=== PATIENT | female | born 1950 | race Caucasian/White ===

== ENCOUNTER → 2020-10-08 13:45 | Outpatient (BNVA) | payer MEDICARE, SELFPAY | PROVIDERS: PCP Family Medicine | DX: N39.46 Mixed incontinence (principal) | CPT/HCPCS: 99212 ==

== ENCOUNTER → 2021-03-23 13:41 | Outpatient (BNVA) | payer MEDICARE, SELFPAY | DX: N39.46 Mixed incontinence (principal) | CPT/HCPCS: 99212 ==

== ENCOUNTER → 2021-04-22 13:38 | Outpatient (BNVA) | payer MEDICARE, SELFPAY | DX: N39.46 Mixed incontinence (principal) | CPT/HCPCS: 51798; 99212 ==

== ENCOUNTER 2021-05-09 10:20 | Day surgery (SDC) | payer MEDICARE, SELFPAY ==
[2021-05-05 14:17] VITALS: BMI 30.4
--- NOTE | 2021-05-06 10:06 | HO.ANESPROP2 ---
Documented by User: Cate Jaimes NP 05/06/21 10:07 HPI - Anesthesia Eval Consult details Narrative: 70yo F for Interstim Generator Removal PMFSH Active Problems Active Problems: All Active Problems (Updated 05/05/21 @ 14:16 by Torri Pearl RN) Urge and stress incontinence (Acute) Past Medical History Medical History (Updated 05/05/21 @ 14:16 by Torri Pearl RN) Anxiety and depression Arthritis Hypothyroidism OAB (overactive bladder) PONV (postoperative nausea and vomiting) Urge and stress incontinence Surgical History Surgical History (Updated 05/05/21 @ 14:16 by Torri Pearl RN) History of partial hysterectomy History of pubovaginal sling History of surgery Hx of colonoscopy Social History Social History (Updated 05/05/21 @ 14:17 by Torri Pearl RN) Alcohol intake: current Alcohol intake frequency: holidays/special occasions only Patient Tobacco Use Status: Former Tobacco user Quit Date: 1983 Use of substances other than those prescribed or required for medical reasons: No Are you DNR?: No Advance Directives: No Advance Directives Information Provided: Yes Advance Directives on File: No Recently lost weight without trying: No Meds Allergies Allergy/AdvReac Type Severity Reaction Status Date / Time atorvastatin [From Lipitor] AdvReac Intermediate muscle ache Verified 05/05/21 14:12 Home Medications Medication Instructions Recorded Confirmed Last Taken Type lamotrigine 100 mg tablet 100 mg PO TID 02/11/21 05/05/21 Unknown History levothyroxine 75 mcg tablet 1 tab PO DAILY 02/11/21 05/05/21 05/09/21 History (Euthyrox) meclizine 25 mg tablet tab PO 02/11/21 Unknown History pravastatin 80 mg tablet 1 tab PO DAILY 02/11/21 05/05/21 Unknown History tretinoin 0.1 % topical cream 1 applic TOPICAL BEDTIME 02/11/21 02/11/21 Unknown History Exam Exam Date and Time: May 06, 2021 1006 Height,Weight and Vital Signs: Height 5 ft 4.5 in Weight 81.647 kg Assessment and Plan Assessment Anesthesia Assessment: Chart Reviewed Documented by User: Alejandro Chapman 05/09/21 16:47 [facility] Past Medical History Medical History (Updated 05/05/21 @ 14:16 by Torri Pearl, MALICK) Anxiety and depression Arthritis Hypothyroidism OAB (overactive bladder) PONV (postoperative nausea and vomiting) Urge and stress incontinence Family History Family history of problems with anesthesia: No Surgical History Surgical History (Updated 05/05/21 @ 14:16 by Torri Pearl RN) History of partial hysterectomy History of pubovaginal sling History of surgery Hx of colonoscopy History of Problems with Anesthesia: Yes (Ponv ) Social History Social History (Updated 05/05/21 @ 14:17 by Torri Pearl RN) Alcohol intake: current Alcohol intake frequency: holidays/special occasions only Patient Tobacco Use Status: Former Tobacco user Quit Date: 1983 Use of substances other than those prescribed or required for medical reasons: No Are you DNR?: No Advance Directives: No Advance Directives Information Provided: Yes Advance Directives on File: No Recently lost weight without trying: No Meds Allergies Allergy/AdvReac Type Severity Reaction Status Date / Time atorvastatin [From Lipitor] AdvReac Intermediate muscle ache Verified 05/05/21 14:12 Home Medications Medication Instructions Recorded Confirmed Last Taken Type lamotrigine 100 mg tablet 100 mg PO TID 02/11/21 05/05/21 Unknown History levothyroxine 75 mcg tablet 1 tab PO DAILY 02/11/21 05/05/21 05/09/21 History (Euthyrox) meclizine 25 mg tablet tab PO 02/11/21 Unknown History pravastatin 80 mg tablet 1 tab PO DAILY 02/11/21 05/05/21 Unknown History tretinoin 0.1 % topical cream 1 applic TOPICAL BEDTIME 02/11/21 02/11/21 Unknown History Exam Airway Mallampati Class: III TM Dist: >3cm Neck ROM: Full Partial: Upper Loose/Missing/Broken Teeth: Yes (Fillings ) Heart: rrr Lungs: bl breath sounds Assessment and Plan Assessment Anesthesia Assessment: Anesthesia Plan Discussed Final Anesthetic Review Family History of Problems with Anesthesia: No History of Problems with Anesthesia: Yes (Ponv ) NPO: Yes ASA Class: II Final Preanesthetic Review: Meds/Allgs Chart Reviewed, Consent Obtained/Reviewed and Anes Risks/Benef Reviewed Patient Risk: Intermediate Procedure Risk: Intermediate Anesthetic Plan Anesthetic Plan: GA Disposition: Standard PACU
[2021-05-09 11:54] VITALS: BP 153/70; PULSE 67; RESP 16; TEMP 36.5; O2SAT 95
[2021-05-09] MEDS: Lactated Ringers 1,000 ML 100 ML IVCONT (12:10)
[2021-05-09] MEDS: Scopolamine 1.5 MG PATCH.TD.3 TRANSDERMA (12:10)
--- NOTE | 2021-05-09 17:10 | MHC.SHP ---
Pre-Procedural Eval Section A Date of Service: 05/09/21 The patient is an INPATIENT: No Changes since office visit: Yes Cold of Flu in the past 2 weeks, Yes New Medical Problems, Yes Changes in Medication and Yes Patient answered all questions The History & Physical has been completed within 30 days and I have reviewed it.: Yes Section B Chief Complaint: mixed incontinence Allergies: Allergies Allergy/AdvReac Type Severity Reaction Status Date / Time atorvastatin [From Lipitor] AdvReac Intermediate muscle ache Verified 05/05/21 14:12 Plan Diagnosis/Plan: Unchanged ( InterStim removal generated) I have reviewed the history and physical and performed a pertinent physical examination on my patient. No changes have occurred unless specified.
[2021-05-09] MEDS: levoFLOXacin 500 MG TABLET PO (17:18)
--- NOTE | 2021-05-09 18:34 | W.PM.OPN ---
Operative Note Operative Note Date of Service: 05/09/21 Narrative: PreOperative Diagnosis: nonfunctional InterStim Post Operative Diagnosis: nonfunctioning InterStim device Procedure: removal InterStim generator and lead Surgeon: Dr Andrew Monique Anesthesia: sedation Indications for procedure: 70-year-old female. Nonfunctional InterStim lead and device. Would like to have this removed. Is aware the risks and benefits. Has been given Myrbetriq to try Procedure: After informed consent was verified the patient was brought to the operating room and placed in a supine position. Anesthesia was administered per protocol. patient was placed in a prone position. She was prepped and draped in sterile fashion. Safety pause time-out performed. Local anesthetic infiltrated around the prior incision side and at the lead placement site. 15 blade used to divide skin and subcutaneous tissue onto device. Device was freed from its attachment in its pocket. Lead was then followed using an open-ended catheter over the lead with dissection to the foramen. The lead was grasped and removed. The tines remained behind is the lead was fully removed. the pocket was irrigated out. Deep tissue closed with interrupted 3-0 Vicryl. Skin closed with running 4-0 Monocryl and dressing applied. She tolerated the procedure well was extubated in operating room transferred in stable condition to the recovery area Pathology: device Drains: no drain
[2021-05-09 18:35] VITALS: BP 139/60; PULSE 68; RESP 16; TEMP 37.1; O2SAT 94
[2021-05-09 18:40] VITALS: BP 129/56; PULSE 66; RESP 14; O2SAT 92
[2021-05-09 18:47] VITALS: BP 121/61; PULSE 65; RESP 18; O2SAT 93
[2021-05-09 20:09] VITALS: BP 118/68; PULSE 68; RESP 16; TEMP 36.6; O2SAT 94
== END 2021-05-09 19:20 | disposition home or self-care (01) ==
PROVIDERS: PCP Family Medicine; Visit Provider Urology
PROC: (CPT 64585; principal; 2021-05-09 11:00)
DX: T85.193A Other mechanical complication of implanted electronic neurostimulator, generator, initial encounter (principal); Y73.1 Therapeutic (nonsurgical) and rehabilitative gastroenterology and urology devices associated with adverse incidents; N39.46 Mixed incontinence; N32.81 Overactive bladder; E03.9 Hypothyroidism, unspecified; F32.9 Major depressive disorder, single episode, unspecified; Z79.899 Other long term (current) drug therapy; Z88.8 Allergy status to other drugs, medicaments and biological substances; Z90.711 Acquired absence of uterus with remaining cervical stump; Z87.891 Personal history of nicotine dependence; Z45.42 Encounter for adjustment and management of neurostimulator
CPT/HCPCS: 64585; 64595; C1758; J1100; J2405; J3010

== ENCOUNTER → 2021-05-16 11:31 | Outpatient (BNVA) | payer MEDICARE, SELFPAY | PROVIDERS: PCP Family Medicine | DX: N39.46 Mixed incontinence (principal) | CPT/HCPCS: 99212; Q3014 ==

== ENCOUNTER → 2021-06-10 13:25 | Outpatient (BNVA) | payer MEDICARE, SELFPAY | PROVIDERS: PCP Family Medicine; Visit Provider Urology | DX: N39.46 Mixed incontinence (principal) | CPT/HCPCS: 99212 ==

== ENCOUNTER → 2021-07-15 11:17 | Outpatient (BNVA) | payer MEDICARE, SELFPAY | PROVIDERS: PCP Family Medicine | DX: N39.46 Mixed incontinence (principal) | CPT/HCPCS: Q3014 ==

== ENCOUNTER 2022-05-29 13:51 | Outpatient (REF) | payer MEDICARE, SELFPAY ==
[2022-05-29 17:08] LABS: Urine Cytology See Pathology rpt
== END 2022-05-29 13:52 | disposition home or self-care (01) ==
LOC: HO.LAB 13:51
PROVIDERS: PCP Family Medicine; Visit Provider Urology
DX: N39.46 Mixed incontinence (principal); R31.29 Other microscopic hematuria
CPT/HCPCS: 51798; 87086; 88112; 99212

== ENCOUNTER → 2022-06-30 14:16 | Outpatient (BNVA) | payer MEDICARE, SELFPAY | PROVIDERS: PCP Family Medicine; Visit Provider Urology | DX: R31.29 Other microscopic hematuria (principal); N93.9 Abnormal uterine and vaginal bleeding, unspecified; N39.41 Urge incontinence; N32.81 Overactive bladder; Z79.899 Other long term (current) drug therapy | CPT/HCPCS: 52000; 99212 ==

== ENCOUNTER → 2022-08-16 15:02 | Outpatient (BNVA) | payer MEDICARE, SELFPAY | PROVIDERS: PCP Family Medicine; Visit Provider Urology | DX: N39.41 Urge incontinence (principal); N32.89 Other specified disorders of bladder; N32.81 Overactive bladder; N93.9 Abnormal uterine and vaginal bleeding, unspecified; R31.29 Other microscopic hematuria | CPT/HCPCS: 99212 ==

== ENCOUNTER → 2022-09-27 14:22 | Outpatient (BNVA) | payer MEDICARE, SELFPAY | PROVIDERS: Visit Provider Urology | DX: N32.81 Overactive bladder (principal); N39.41 Urge incontinence | CPT/HCPCS: 51700; 51701; 99212 ==

== ENCOUNTER 2022-10-10 06:23 | Day surgery (SDC) | payer MEDICARE, SELFPAY ==
[2022-10-10 06:51] VITALS: BP 155/64; PULSE 66; RESP 16; TEMP 36.7; O2SAT 97; BMI 28.7
[2022-10-10] MEDS: Scopolamine 1.5 MG PATCH.TD.3 TRANSDERMA (07:01)
[2022-10-10] MEDS: Lactated Ringers 1,000 ML 100 ML IVCONT (07:06)
--- NOTE | 2022-10-10 07:46 | HO.ANESPROP2 ---
HPI - Anesthesia Eval Consult details Narrative: cysto PMFSH Active Problems Active Problems: All Active Problems (Updated 10/10/22 @ 06:44 by Sabra Lockwood) Microscopic hematuria (Acute) Urgency of micturition (Acute) Vaginal bleeding (Acute) Urge incontinence (Acute) Bladder wall thickening (Acute) Detrusor instability (Acute) OAB (overactive bladder) (Acute) Urge and stress incontinence (Acute) Past Medical History Medical History (Updated 10/10/22 @ 06:44 by Sabra Lockwood) Anxiety and depression Arthritis Fibromyalgia Hypothyroidism OAB (overactive bladder) PONV (postoperative nausea and vomiting) Urge and stress incontinence Family History Family history of problems with anesthesia: No Surgical History Surgical History (Updated 10/10/22 @ 06:41 by Sabra Lockwood) History of foot surgery History of partial hysterectomy History of pubovaginal sling History of surgery Hx of breast implants, bilateral Hx of colonoscopy History of Problems with Anesthesia: Yes (Ponv ) Social History Social History Alcohol intake: current Alcohol intake frequency: holidays/special occasions only Patient Tobacco Use Status: Former Tobacco user Quit Date: 1989 Tobacco use type: Cigarette Years Smoked: 15 Smoked in Last 30 Days: No Use of substances other than those prescribed or required for medical reasons: No Are you DNR?: No Advance Directives: No Advance Directives Information Provided: Yes Meds Allergies Allergy/AdvReac Type Severity Reaction Status Date / Time atorvastatin [From Lipitor] AdvReac Intermediate muscle ache Verified 10/10/22 06:41 Active Medications: Current Medications Botulinum Toxin Type A (Onabotulinumtoxina 100 Unit Vial) 100 unit INTRADETRU ONCE ONE Stop: 10/10/22 08:01 Lactated Ringer's (Lr) 1,000 mls @ 100 mls/hr IVCONT .Q10H GERRY Last Admin: 10/10/22 07:06 Dose: 100 mls/hr Home Medications Medication Instructions Recorded Confirmed Last Taken Type meclizine 25 mg tablet 1 tab PO DAILY 02/11/21 10/10/22 Unknown History pravastatin 80 mg tablet 1 tab PO DAILY 02/11/21 10/10/22 Unknown History levothyroxine 75 mcg tablet 75 mcg PO QAM 10/10/22 10/10/22 Unknown History Exam Exam Date and Time: October 10, 2022 0746 Height,Weight and Vital Signs: Height 5 ft 4.5 in Weight 77.111 kg Last Vital Signs Temp 98.1 F 10/10/22 06:51 Pulse 66 10/10/22 06:51 Resp 16 10/10/22 06:51 BP 155/64 H 10/10/22 06:51 Pulse Ox 97 10/10/22 06:51 O2 Del Method Room Air 10/10/22 06:51 Airway Mallampati Class: II TM Dist: >3cm Neck ROM: Limited Heart: rrr Lungs: cta Assessment and Plan Assessment Anesthesia Assessment: Anesthesia Plan Discussed and Chart Reviewed Final Anesthetic Review Family History of Problems with Anesthesia: No History of Problems with Anesthesia: Yes (Ponv ) NPO: Yes ASA Class: II Final Preanesthetic Review: No Changes in Pt Med Stat, Meds/Allgs Chart Reviewed, Consent Obtained/Reviewed and Anes Risks/Benef Reviewed Patient Risk: Intermediate Procedure Risk: Intermediate Anesthetic Plan Anesthetic Plan: GA and Agree w/ Assess. and Plan Disposition: Standard PACU
--- NOTE | 2022-10-10 08:14 | MHC.SHP ---
Pre-Procedural Eval Section A Date of Service: 10/10/22 The patient is an INPATIENT: No The History & Physical has been completed within 30 days and I have reviewed it.: Yes Section B Chief Complaint: Overactive bladder Allergies: Allergies Allergy/AdvReac Type Severity Reaction Status Date / Time atorvastatin [From Lipitor] AdvReac Intermediate muscle ache Verified 10/10/22 06:41 Plan Diagnosis/Plan: Unchanged I have reviewed the history and physical and performed a pertinent physical examination on my patient. No changes have occurred unless specified. Cysto Botox bladder injection Time Spent With Patient Time: Total time managing care of this patient today ____ minutes.
[2022-10-10 09:10] VITALS: BP 141/69; PULSE 90; RESP 16; TEMP 36.1; O2SAT 93
[2022-10-10 09:15] VITALS: BP 133/65; PULSE 65; RESP 16; O2SAT 95
[2022-10-10 09:20] VITALS: BP 138/72; PULSE 58; RESP 16; O2SAT 96
--- NOTE | 2022-10-10 09:20 | W.PM.OPN ---
Operative Note Operative Note Date of Service: 10/10/22 Narrative: PREOP DIAGNOSIS: OAB POSTOP DIAGNOSIS: OAB PROCEDURE: CYSTOSCOPY, BLADDER BOTOX INJECTION 100 UNITS SURGEON: Yaneli Ball MD ANESTHESIA: General Indications: Cindy is a 72 year old female with urge urinary incontinence secondary to spastic bladder failed PO anticholingeric medications. Details of procedure: The patient was brought into the operating room placed on the OR table in supine position. Levaquin 500 mg IV. General anesthesia was administered. The patient was repositioned into lithotomy position, prepped and draped in the usual sterile fashion. Time-out was done per protocol. A 22 fr cystoscope was placed transurethrally into the bladder. Urine was sent for culture. The right and left ureteral orifices were visualized. There were no suspicious bladder lesions seen. The Botox 100 units was mixed with 10 cc of normal saline and injected transurethrally 1/2 cc to 1 cc per injection into the posterior bladder wall. The cystoscope was removed. 2% lidocaine urojet was passed transurethrally into the bladder. The patient was brought out of anesthesia and taken to recovery in stable condition. Complications: None Drains: none
[2022-10-10 09:25] VITALS: BP 136/62; PULSE 57; RESP 16; O2SAT 97
[2022-10-10] MEDS: Phenazopyridine HCL 200 MG TABLET PO (09:28)
[2022-10-10 09:40] VITALS: BP 154/72; PULSE 58; RESP 16; TEMP 36.1; O2SAT 96
== END 2022-10-10 10:23 | disposition home or self-care (01) ==
PROVIDERS: PCP Family Medicine; Visit Provider Urology
PROC: 3E0K8GC Introduction of Other Therapeutic Substance into Genitourinary Tract, Via Natural or Artificial Opening Endoscopic (ICD-10-PCS; CPT 52287; principal; 2022-10-10 08:20)
DX: N32.81 Overactive bladder (principal); N39.41 Urge incontinence
CPT/HCPCS: 52287; 87086; J0131; J0585; J1100; J1885; J1956; J2405

== ENCOUNTER → 2022-10-10 06:23 | Outpatient (BNV) | payer MEDICARE, SELFPAY | PROVIDERS: PCP Family Medicine; Visit Provider Urology | DX: N32.81 Overactive bladder (principal) | CPT/HCPCS: 52287 ==

== ENCOUNTER → 2022-10-31 14:54 | Outpatient (BNVA) | payer MEDICARE, SELFPAY | PROVIDERS: PCP Family Medicine; Visit Provider Urology | DX: N32.81 Overactive bladder (principal) | CPT/HCPCS: 51798 ==

== ENCOUNTER 2022-11-20 15:47 | Outpatient (AMB) | payer MEDICARE, SELFPAY ==
--- NOTE | 2022-11-20 12:18 | A.OFFVIS_ITS ---
Intake Intake Visit Reasons: 6wk follow up Intake Note: Patient presents today for a follow-up on Post Op Cysto Botox bladder injection: Meds- Levothyroxine Allergies to Antibiotic- No Known Allergies Blood Thinner- None Stars Analytical Lead Required: No Accompanied by: Self / Same As Patient Allergies atorvastatin [From Lipitor] Adverse Reaction (Intermediate, Verified 10/10/22 06:41) muscle ache HPI HPI Comments History of Present Illness Details Cindy is a 72-year-old female who presents today to the office for a 6-week follow up. 11/20/2022? She was last seen in the office by me on 09/27/2022 for overactive bladder and mixed urinary incontinence. Bladder Botox treatment 100 units was discussed during that time. She is s/p Botox procedure on 10/10/22. Results reviewed?urine culture?10/10/2022--normal. Patient has received bladder Botox injection 100 units on 10/10/2022. Today, she states that she noticed a big improvement on her bladder control. She states that she is not leaking the urine like before. She reports stronger urinary stream and notes that she is emptying the bladder. Evaluation: Bladder scan PVR - 0 mL. Review of charts: Last visit: 09/27/2022? The patient is being followed for OAB symptoms and mixed urinary incontinence. She was last seen in the office on 08/16/22, at that time she stated she had no i mprovement using Gemtesa 75 mg. She had been prescribed multiple antimuscarinic therapy including Myrbetriq and oxybutynin. Medical records also note Medtronic InterStim was placed 2001 and later removed, the patient states the pacemaker initially seemed to work, but the battery lifetime and she was concerned that if she needed an MRI she would not be able to get one, (I have discussed that interstim is now MRI compatible).? History of sling approximately [address] Carrera. The patient is yet to follow-up with RN CLINICAL DOCUMENTATION. States intermittent mild vaginal bleeding. Evaluation today-- Eyeball Cystometrogram performed-- filled the bladder with sterile water- at 30 cc she had first sensation, at 70 cc she complained of urgency and at 195 cc she felt that she was at max capacity and detrusor contractions were noted. I removed the catheter and she started leaking. 16 Fr Liz catheter was used for the pr ocedure. Plan: Bladder Botox treatment 100 units discussed.?? 11/20/2022: Plan: I have discussed Botox injection 100 units is usually done one to twice a year, depending on LUTS, but may need to be repeated earlier at 3 months pending worsening LUTS She will have a follow up in 5 months and instructed to call sooner if needed [facility] Medical History Anxiety and depression Arthritis Fibromyalgia Hypothyroidism OAB (overactive bladder) PONV (postoperative nausea and vomiting) Urge and stress incontinence Surgical History History of foot surgery History of partial hysterectomy History of pubovaginal sling History of surgery Hx of breast implants, bilateral Hx of colonoscopy Social History Alcohol intake: current Alcohol intake frequency: holidays/special occasions only Patient Tobacco Use Status: Former Tobacco user Quit Date: 1989 Tobacco use type: Cigarette Years Smoked: 15 Review of Systems Const All systems reviewed & are unremarkable except as noted in HPI and below Reports no additional complaints Eyes Reports no additional complaints ENT Reports no additional complaints Card Denies dyspnea Resp Denies cough and Denies dyspnea GI Reports no additional complaints Reports no additional complaints Musc Reports no additional complaints Skin/Breast Denies rash and Denies unusual bruising Neuro Reports no additional complaints Psych Reports no additional complaints Endo Reports no additional complaints Tyson/Lymph Reports no additional complaints Aller/Immun Reports no additional complaints Results AMB Urinalysis, Automated UA Leukoctes 125 Antionette/uL Last Edit by Brigitte Seo A on 11/20/22 16:03 2+ Brigitte Seo 11/20/22 16:03 UA Nitrite Negative Last Edit by Brigitte Seo A on 11/20/22 16:03 UA Urobilinogen 0.2 mg/dL Last Edit by Brigitte Seo, A on 11/20/22 16:0 3 UA Protein 15 mg/dL Last Edit by Brigitte Seo, A on 11/20/22 16:03 UA pH 6.0 Last Edit by Brigitte Seo, A on 11/20/22 16:03 UA Blood 80 Zackary/uL Last Edit by Brigitte Seo A on 11/20/22 16:03 2+ Brigitte Seo 11/20/22 16:03 UA Specific Cowan 1.030 Last Edit by Brigitte Seo [facility] on 11/20/22 16: 03 UA Ketone Negative Last Edit by Brigitte Seo [facility] on 11/20/22 16:03 UA Bilirubin 0 mg/dL Last Edit by Brigitte Seo A on 11/20/22 16:03 UA Glucose 0 mg/dL Last Edit by Brigitte Seo [facility] on 11/20/22 16:03 Results Reviewed Results Reviewed: Laboratory Last Values Urine pH (Auto) 6.0 11/20/22 15:55 Specific Cowan (Auto) 1.030 11/20/22 15:55 Urine Protein (Auto) 15 mg/dL 11/20/22 15:55 Glucose (UA)(Auto) 0 mg/dL 11/20/22 15:55 Urine Ketones (Auto) Negative 11/20/22 15:55 Urine Blood (Auto) 80 Zackary/uL 11/20/22 15:55 Urine Nitrite (Auto) Negative 11/20/22 15:55 Urine Bilirubin (Auto) 0 mg/dL 11/20/22 15:55 Urine Urobilinogen (Auto) 0.2 mg/dL 11/20/22 15:55 Leukocyte Esterase (Auto) 125 Antionette/uL 11/20/22 15:55 Assessment & Plan Assessment & Plan (1) OAB (overactive bladder): Code(s): N32.81 - Overactive bladder (2) Detrusor instability: Code(s): N32.81 - Overactive bladder (3) Urge incontinence: Code(s): N39.41 - Urge incontinence Plan I have discussed Botox injection 100 units is usually done one to twice a year, depending on LUTS, but may need to be repeated earlier at 3 months pending worsening LUTS She will have a follow up in 5 months and instructed to call sooner if needed Orders: Orders AMB Urinalysis Automated 11/20/22 Z13.9 - Encounter for screening, unspecified Patient Instructions: The patient had an opportunity to ask questions regarding treatment plan. All questions were answered. Imaging, Laboratory studies and physical exam results were discussed and reviewed in detail. No major barriers to understanding were identified. The patient expressed understanding and agreement with the above treatment plan.? ? ? The patient is aware they should contact our office by phone for worsening of their current condition or the appearance of new symptoms. Compliance is encouraged with any medications and followup testing that is ordered.? ? ? It is a privilege to be allowed the opportunity to participate in the urologic care of your patient. If you have any questions or concerns regarding treatment for the above conditions please do not hesitate to contact me. The office telephone contact is [phone].? ? ? This note is constructed in part using voice recognition software. While every effort has been made to ensure accuracy motorcycle tester errors may have been included.? ? ? Yours sincerely,? ? ? Yaneli Ball MD? ? Coding Level of Care Code Est Pt Level 3 (96456) Diagnoses OAB (overactive bladder) N32.81 Detrusor instability N32.81 Urge incontinence N39.41
== END 2022-11-20 16:09 | disposition home or self-care (01) ==
PROVIDERS: PCP Family Medicine; Visit Provider Urology
DX: N32.81 Overactive bladder (principal); N39.41 Urge incontinence
CPT/HCPCS: 99213

== ENCOUNTER → 2022-11-20 15:47 | Outpatient (BNVA) | payer MEDICARE, SELFPAY | PROVIDERS: PCP Family Medicine; Visit Provider Urology | DX: N32.81 Overactive bladder (principal); N39.46 Mixed incontinence | CPT/HCPCS: 81003; 99212 ==

== ENCOUNTER 2024-10-02 14:08 | Outpatient (REF) | payer MEDICARE, SELFPAY | END 2024-10-02 14:09 | disposition home or self-care (01) | LOC: HO.LAB 14:08 | PROVIDERS: PCP Family Medicine; Visit Provider Urology | DX: N32.81 Overactive bladder (principal); N39.41 Urge incontinence | CPT/HCPCS: 87086; 99212 ==

== ENCOUNTER 2024-10-02 14:08 | Outpatient (AMB) | payer MEDICARE, SELFPAY ==
--- OUTSIDE RECORDS SUMMARY | 2017-11-26 03:00 | XMS_ITS | Continuity of Care Document ---
Author Organization [facility] Address [address] [facility] [address] [place] [phone] Phone Care Team Providers Care Business Reporting Developer Name Role Phone Garett Landers Unavailable Unavailable Procedures Procedure Date Sngl/mx Inj Scleros-veins; Diego 18 Sngl/mx Inj Scleros-veins; Diego 18 Advance Directives Directive Yes / No Effective Date File Name No Information Encounters Encounter Description Practice Location Reason(s) For Visit Diagnoses Date Provider Providers Copied on Encounter [facility], [address] [place] [address], [place], [place], [id number], tel:[phone] VR - [facility] Spider Veins - (Telangiect ac) Anshul Bajwa. [address], [place], [facility] [place], . tel:[phone] Referring Provider: Garett Meza, [address], [place], [place], [facility] [place]. tel:[phone] [facility], [address] [place] [address], [place], [place], [id number], tel:[phone] VR - [facility] Spider Veins - (Telangiect ac) Anshul Bajwa. [address], [place], [facility] [place], . tel:[phone] Referring Provider: Garett Landers F, [address], [place], [address]. tel:[phone] Family History Family Member Type Diagnosis Age [...]
--- NOTE | 2024-10-02 14:12 | MHC.OFFVIS ---
Intake Visit Reasons: follow up/OAB(seen last 2022) Intake Note: Patient presents today for a follow-up/OAB Urology Meds- Levothyroxine Allergies to Antibiotic- No Known Allergies Blood Thinner- None PVR: 0ml Automobile Mechanic Helper Required: No Accompanied by: Self / Same As Patient Allergies atorvastatin (From Lipitor) Adverse Reaction (Intermediate, Verified 10/02/24 14:21) muscle ache Medication List - Last Reconciled 10/02/24 by Yaneli Ball MD levofloxacin 250 mg PO Q24H 5 days levothyroxine 75 mcg PO QAM meclizine 1 tab PO DAILY pravastatin 1 tab PO DAILY HPI Comments Details: 10/02/24-- History of Present Illness - The patient is a 73-year-old female presenting with overactive bladder. - The patient has a history of overactive bladder symptoms which were previously managed with oral medications, but these were not effective. - In September 2022, the patient received a bladder Botox injection of 100 units as an outpatient procedure, which significantly improved her symptoms. - The effects of the Botox injection has had a sustained effect of symptom relief for several months - Recently, the patient has experienced a recurrence of symptoms, including increased urgency over the last two months. - A urine culture will be conducted to rule out any infection before proceeding with another Botox injection. Plan -- Conduct a urine culture to rule out infection before proceeding with the Botox injection. - Plan for a repeat Botox injection of 100 units for the management of overactive bladder symptoms. 11/20/2022?Cindy is a 72-year-old female who presents today to the office for a 6-week follow up. She was last seen in the office by me on 09/27/2022 for overactive bladder and mixed urinary incontinence. Bladder Botox treatment 100 units was discussed during that time. She is s/p Botox procedure on 10/10/22. Results reviewed?urine culture?10/10/2022--normal. Patient has received bladder Botox injection 100 units on 10/10/2022. Today, she states that she noticed a big improvement on her bladder control. She states that she is not leaking the urine like before. She reports stronger urinary stream and notes that she is emptying the bladder. Evaluation: Bladder scan PVR - 0 mL. Last visit: 09/27/2022?The patient is being followed for OAB symptoms and mixed urinary incontinence. She was last seen in the office on 08/16/22, at that time she stated she had no improvement using Gemtesa 75 mg. She had been prescribed multiple antimuscarinic therapy including Myrbetriq and oxybutynin. Medical records also note Medtronic InterStim was placed 2001 and later removed, the patient states the pacemaker initially seemed to work, but the battery lifetime and she was concerned that if she needed an MRI she would not be able to get one, (I have discussed that interstim is now MRI compatible).? History of sling approximately [address] Carrera. The patient is yet to follow-up with [employer]. States intermittent mild vaginal bleeding. Evaluation today-- Eyeball Cystometrogram performed-- filled the bladder with sterile water- at 30 cc she had first sensation, at 70 cc she complained of urgency and at 195 cc she felt that she was at max capacity and detrusor contractions were noted. I removed the catheter and she started leaking. 16 Fr Liz catheter was used for the procedure. Plan: Bladder Botox treatment 100 units discussed.?? PFSH Medical History Fibromyalgia Hypothyroidism Arthritis Anxiety and depression OAB (overactive bladder) PONV (postoperative nausea and vomiting) Urge and stress incontinence Surgical History Hx of breast implants, bilateral History of foot surgery Hx of colonoscopy History of partial hysterectomy History of pubovaginal sling History of surgery Social History Alcohol intake: current Alcohol intake frequency: holidays/special occasions only Patient Tobacco Use Status: Former Tobacco user Tobacco use type: Cigarette Years Smoked: 15 Review of Systems Const All systems reviewed & are unremarkable except as noted in HPI and below Reports no additional complaints Eyes Reports no additional complaints ENT Reports no additional complaints Card Reports no additional complaints Resp Reports no additional complaints GI Reports no additional complaints Reports as per HPI Musc Reports no additional complaints Skin/Breast Reports system reviewed and no additional complaints, except as documented Neuro Reports no additional complaints Psych Reports no additional complaints Endo Reports no additional complaints Tyson/Lymph Reports no additional complaints Aller/Immun Reports no additional complaints Assessment & Plan Assessment & Plan (1) OAB (overactive bladder): Code(s): N32.81 - Overactive bladder Category: Medical (2) Detrusor instability: Code(s): N32.81 - Overactive bladder Category: Medical (3) Urge incontinence: Code(s): N39.41 - Urge incontinence Category: Medical Plan Plan for a repeat Botox injection of 100 units We will send surveillance urine culture. Once Botox as scheduled the patient will start Levaquin 2 days prior Medications: Changed From levofloxacin 250 mg PO Q24H 5 days 5 tabs 0RF To levofloxacin Start antibiotics 2 days prior to Botox procedure 250 mg PO Q24H 5 tabs 0RF 5 days Patient Instructions: The patient had an opportunity to ask questions regarding treatment plan. The patient expressed understanding and agreement with the above treatment plan. The patient is aware they should contact our office by phone for worsening of their current condition or the appearance of new symptoms. Compliance is encouraged with any medications and followup testing that is ordered. It is a privilege to be allowed the opportunity to participate in the urologic care of your patient. If you have any questions or concerns regarding treatment for the above conditions please do not hesitate to contact me. The office telephone contact is [phone]. This note is constructed in part using voice recognition software. While every effort has been made to ensure accuracy mainspring strip gauger errors may have been included. Yours sincerely, Yaneli Ball MD Scribe Plan - Not visible on output: Patient was informed and verbally consented to the use of an ambient scribe for clinic note documentation during this visit. Coding Level of Care Code Est Pt Level 4 (91474) Diagnoses OAB (overactive bladder) N32.81 Detrusor instability N32.81 Urge incontinence N39.41
--- OUTSIDE RECORDS SUMMARY | 2024-10-02 14:12 | XMS_ITS | Clinical Summary ---
Author Organization [facility] Address [address] [place] [address] Care Team Providers Care Director Hedis Name Role Phone Tonya Gomez MD Primary Care Provider [phone] Immunizations Name Administration Dates Next Due Covid-19 (J&J) 07/10/2020 Social History Tobacco Use Types Packs/Day Years Used Date Smoking Tobacco: Never Assessed Sex and Gender Information Value Date Recorded Sex Assigned at Female 07/10/2020 11:25 AM EDT Gender Identity Not on file Sexual Orientation Not on file Plan of Treatment Health Maintenance Due Date Last Done Comments Hepatitis C Screening 1949 Depression Screening 1961 Preventative Health Evaluation 10/06/1967 Colon Cancer Screening (Colonoscopy) 1994 Breast Cancer Screening (Mammogram) 10/06/1999 Fall Risk Assessment 2014 Osteoporosis Screening (DEXA Scan) 2014 DTap / Tdap / Td (2 - Td or Tdap) 03/25/2022 03/25/2012, 02/28/2010, 04/10/2000 COVID-19 Vaccine ( - season) 2023 07/10/2020 RSV Adult > 60+ Yrs or (1 - 1-dose 75+ series) 2024 Influenza Vaccine (Season Ended) 2024 01/02/2020, 12/01/2018, 12/26/2017, Additional history exists Pneumococcal Vaccine Completed 02/09/2016, 02/16/20 15 Shingrix-Zoster Vaccine Completed 03/09/2019, 12/01 Hepatitis B Vaccines Aged Out No long er eligible based on patient's age to complete this topic RSV Ped < 20 months Aged Out No longe r eligible based on patient's age to complete this topic Care Teams Director Hedis Relationship Specialty Start Date End Date Tonya Gomez MD [address] [address] [place] [phone] PCP - General Family Medicine 07/10/20
--- OUTSIDE RECORDS SUMMARY | 2024-10-02 14:13 | XMS_ITS | Patient Health Record ---
Author Organization [facility]ianerocio merrill Brilliant Address [address] [place] [address] Care Team Providers Care Pipeline Construction Inspector Name Role Phone Tonya Gomez Primary Care Provider Rosalina Jain Unavailable [phone] Allergies No Known Allergies Reason For Referral No Information Medications Medication SIG (Take, Route, Frequency, Duration) Notes Start Date End Date Status Ammonium Lactate 12 % APPLY CREAM TOPICA LLY TO AFFECTED AREA TWICE DAILY; Duration: 30 Active Terbinafine HCl 250 MG TAKE 1 TABLET BY MOUTH DAILY FOR 7 DAYS, THEN STOP FOR 21 DAYS, THEN REPEAT CYCLE; Duration: 84 Not-Taking Pravastatin Sodium 80 MG 1 tablet Orally Once a day; Duration: 30 day(s) Active Euthyrox 75 MCG 1 tablet in the morn ing on an empty stomach Orally Once a day; Duration: 30 day(s) Active Loprox 0.77 % 1 application Wildlife Officer ally Twice a day 06/02/2021 Not-Taking lamoTRIgine 100 MG 1 tablet Orally Once a day; Duration: 30 day(s) Active Ciclopirox 8 % APPLY SOLUTION TOPIC ALLY TO AFFECTED AREA ONCE DAILY; Duration: 8 Active Social History Tobacco Use: Social History Observation Description Date Details (start date - stop date) Never Smoker NA - NA Tobacco Use/Smoking Question Answer Notes Are you a: nonsmoker Additional Findings: Tobacco Non-User Current no n-smoker Alcohol Screen Question Answer Notes Did you have a drink contain ing alcohol in the past year? Yes How often did you have a dri nk containing alcohol in the past year? Monthly or less (1 point) Points 1 Interpretation Negative Tobacco use other than smoking: Question Answer Notes Are you an other tobacco user? No Problems No Known Problems Encounters Encounter Location Date Provider Diagnosis [facility] [address] [place] [address] 01/07/2024 Rosalina Boles Plan Of Treatment Pending Test Test Name Order Date *Liver Function Test (LFT) 09/12/2021 [id number] NAIL, 6 OR MORE 09/12/2021 [id number] NAIL, 6 OR MORE 11/20/2022 [id number] Plate 09/12/2021 Insurance Providers Payer Name Payer Address Payer Phone Subscriber Number Group Number Insured Name Patient Relationship to Insured Coverage Start Date Coverage End Date Medicare National [facility] [employer] [address] [place] [address] [id number] Cindy Keith Self - patient is the insured [employer] [address] [place] [address] [id number] Cindy Keith Self - patient is the insured Medical (General) History Medical History History ICD Code Arthritis Back,Hip,and Knee pain Fibromyalgia Measles Chicken pox Surgical History Surgery Date(Month/Year) imbilical hernia 1999 plantar fasciiatis 2001 interstem 2012 rotater cuff, right Hospitalization History Reason Date(Month/Year) Enter [facility] 05/2020
== END 2024-10-02 14:57 | disposition home or self-care (01) ==
LOC: HO.HUSH 14:08
PROVIDERS: PCP Family Medicine; Visit Provider Urology
DX: N32.81 Overactive bladder (principal); N39.41 Urge incontinence
CPT/HCPCS: 99214

== ENCOUNTER 2024-10-21 07:17 | Day surgery (SDC) | payer MEDICARE, SELFPAY ==
--- OUTSIDE RECORDS SUMMARY | 2017-11-26 03:00 | XMS_ITS | Continuity of Care Document ---
Author Organization [facility] Address [address] [facility] [address] [place] [phone] Phone Care Team Providers Care Cook Frozen Dessert Name Role Phone Garett Landers Unavailable Unavailable Procedures Procedure Date Sngl/mx Inj Scleros-veins; Diego 18 Sngl/mx Inj Scleros-veins; Diego 18 Advance Directives Directive Yes / No Effective Date File Name No Information Encounters Encounter Description Practice Location Reason(s) For Visit Diagnoses Date Provider Providers Copied on Encounter [facility], [address] [place] [address], [place], [place], [id number], tel:[phone] VR - [facility] Spider Veins - (Telangiect ac) Anshul Bajwa. [address], [place], [facility] [place] [facility] [place], . tel:[phone] Referring Provider: Garett Meza, [address], [place], [place], [facility] [place] [facility] [place]. tel:[phone] [facility], [address] [place] [address], [place], [place], [id number], tel:[phone] VR - [facility] Spider Veins - (Telangiect ac) Anshul Bajwa. [address], [place], [facility] [place] [facility] [place], . tel:[phone] Referring Provider: Garett Landers F, [address], [place], [address]. tel:[phone] Family History Family Member Type Diagnosis Age At Onset No Information Payers Payer name Insurance type Covered republican ID Authoriza tion(s) Self Pay 09 Social History Type Description Quantity Date Captured Comments Sex Female Smoking Status No Information Chief Complaint And Reason For Visit No Information Reason For Referral Reason For Referral No Information History Of Present Illness Encounter Date Complaint History Of Prese nt Illness No Information Functional Status Date Functional Assessmen t No Information Instructions Date Instruction Additional Infor mation No Information Assessments Type Assessment Date No Information Patient Care Teams Name Effective Dates (start - stop) Status Members No Information
--- OUTSIDE RECORDS SUMMARY | 2024-10-13 16:28 | XMS_ITS | Patient Health Record ---
Author Organization [facility] Dianerocio merrill Clarkson Address [address] [place] [address] Care Team Providers Care Contractor Broomcorn Threshing Name Role Phone Tonya Gomez Primary Care Provider Rosalina Jain Unavailable [phone] Allergies No Known Allergies Reason For Referral [...] day(s) Active Loprox 0.77 % 1 application Outpatient Case Manager ally Twice a day 06/02/2021 Not-Taking lamoTRIgine [...] Problems Encounters Encounter Location Date Provider Diagnosis [facility] [place] [address] [place] [address] 01/07/2024 Rosalina Boles Plan Of Treatment Pending Test Test Name Order Date *Liver Function Test (LFT) 09/12/2021 [id number] NAIL, 6 OR MORE 09/12/2021 [id number] NAIL, 6 OR MORE 11/20/2022 [id number] Plate 09/12/2021 Insurance Providers Payer Name Payer Address Payer Phone Subscriber Number Group Number Insured Name Patient Relationship to Insured Coverage Start Date Coverage End Date Medicare National [facility] [employer] [address] [place] [address] [id number] Cindy Keith Self - patient is the insured [employer] [address] [place] [address] [id number] Cindy Keith Self - patient is the insured Medical (General) History Medical History History ICD Code Arthritis Back,Hip,and Knee pain Fibromyalgia Measles Chicken pox Surgical History Surgery Date(Month/Year) imbilical hernia 1999 plantar fasciiatis 2001 interstem 2012 rotater cuff, right Hospitalization History Reason Date(Month/Year) Enter [facility] 05/2020
--- OUTSIDE RECORDS SUMMARY | 2024-10-13 16:28 | XMS_ITS | Clinical Summary ---
Author Organization [facility] Address [address] [place] [address] Care Team Providers Care Indian Blanket Weaver Name Role Phone Tonya Gomez MD Primary Care Provider [phone] Immunizations Name Administration Dates Next Due Covid-19 [...] Evaluation 10/06/1967 Colon Cancer Screening (Colonoscopy) 1994 Fall Risk Assessment 2014 Osteoporosis Screening (DEXA Scan) 2014 DTap / Tdap / Td (2 - Td or Tdap) 03/25/2022 03/25/2012, 02/28/2010, 04/10/2000 COVID-19 Vaccine ( - season) 2023 07/10/2020 RSV Adult > 60+ Yrs or (1 - 1-dose 75+ series) 2024 Influenza Vaccine (#1) 2024 , 12/01/2018, 12/26/2017, Additional history exists Pneumococcal Vaccine Completed 02/09/2016, 02/16/20 15 Shingrix-Zoster Vaccine Completed 03/09/2019, 12/01 Hepatitis B Vaccines Aged Out No long er eligible based on patient's age to complete this topic RSV Ped < 20 months Aged Out No longe r eligible based on patient's age to complete this topic Care Teams Indian Blanket Weaver Relationship Specialty Start Date End Date Tonya Gomez MD [address] [address] [place] [phone] PCP - General Family Medicine 07/10/20
[2024-10-21 07:25] VITALS: BMI 30.3
[2024-10-21 07:42] VITALS: BP 171/77; PULSE 61; RESP 15; TEMP 36.6; O2SAT 95
[2024-10-21] MEDS: Lactated Ringers 1,000 ML 100 ML IVCONT (07:54)
[2024-10-21 08:05] VITALS: BP 168/78
--- NOTE | 2024-10-21 08:15 | HO.ANESPROP2 ---
Documented by User: Nancy Avalos NP 10/20/24 11:13 HPI - Anesthesia Eval Consult details Narrative: 74 yr old female c/o cystoscopy bladder botox injection. s/p GA, LMA 4 in 2022 for cystoscopy botox injection PONV: in med hx, given zofran intraop in 2022 for GA PMFSH Active Problems Active Problems: All Active Problems (Updated 10/10/22 @ 06:44 by Sabra Peña RN) Detrusor instability (Acute) Bladder wall thickening (Acute) Urge incontinence (Acute) Vaginal bleeding (Acute) Urgency of micturition (Acute) Microscopic hematuria (Acute) OAB (overactive bladder) (Acute) Urge and stress incontinence (Acute) Past Medical History Medical History Fibromyalgia Hypothyroidism Arthritis Anxiety and depression OAB (overactive bladder) PONV (postoperative nausea and vomiting) Urge and stress incontinence Family History Family history of problems with anesthesia: No Surgical History Surgical History (Updated 10/21/24 @ 07:43 by Lucía Lofton RN) Hx of umbilical hernia repair Hx of breast implants, bilateral History of foot surgery Hx of colonoscopy History of partial hysterectomy History of pubovaginal sling History of surgery History of Problems with Anesthesia: Yes (Ponv ) Social History Social History Alcohol intake: current Alcohol intake frequency: holidays/special occasions only Patient Tobacco Use Status: Former Tobacco user Tobacco use type: Cigarette Years Smoked: 15 Use of substances other than those prescribed or required for medical reasons: No Are you DNR?: No Advance Directives: No Advance Directives Information Provided: Yes Meds Allergies Allergy/AdvReac Type Severity Reaction Status Date / Time atorvastatin (From Lipitor) AdvReac Intermediate muscle ache Verified 10/21/24 07:25 Home Medications ?Medication ?Instructions ?Recorded ?Confirmed ?Last Taken ?Type meclizine 25 mg tablet 1 tab PO DAILY PRN Dizziness 02/11/21 10/21/24 Unknown History pravastatin 80 mg tablet 1 tab PO DAILY 02/11/21 10/21/24 Unknown History levothyroxine 75 mcg tablet 75 mcg PO QAM 10/10/22 10/21/24 Unknown History Assessment and Plan Final Anesthetic Review Family History of Problems with Anesthesia: No History of Problems with Anesthesia: Yes (Ponv ) Documented by User: Lucía Christian DO 10/21/24 08:16 [facility] Past Medical History Medical History Fibromyalgia Hypothyroidism Arthritis Anxiety and depression OAB (overactive bladder) PONV (postoperative nausea and vomiting) Urge and stress incontinence Family History Family history of problems with anesthesia: No Surgical History Surgical History (Updated 10/21/24 @ 07:43 by Lucía Lofton RN) Hx of umbilical hernia repair Hx of breast implants, bilateral History of foot surgery Hx of colonoscopy History of partial hysterectomy History of pubovaginal sling History of surgery History of Problems with Anesthesia: Yes (PONV) Social History Social History Alcohol intake: current Alcohol intake frequency: holidays/special occasions only Patient Tobacco Use Status: Former Tobacco user Tobacco use type: Cigarette Years Smoked: 15 Use of substances other than those prescribed or required for medical reasons: No Are you DNR?: No Advance Directives: No Advance Directives Information Provided: Yes Meds Allergies Allergy/AdvReac Type Severity Reaction Status Date / Time atorvastatin (From Lipitor) AdvReac Intermediate muscle ache Verified 10/21/24 07:25 Home Medications ?Medication ?Instructions ?Recorded ?Confirmed ?Last Taken ?Type meclizine 25 mg tablet 1 tab PO DAILY PRN Dizziness 02/11/21 10/21/24 Unknown History pravastatin 80 mg tablet 1 tab PO DAILY 02/11/21 10/21/24 Unknown History levothyroxine 75 mcg tablet 75 mcg PO QAM 10/10/22 10/21/24 Unknown History Exam Exam Date and Time: 10/21/24 0815 Height,Weight and Vital Signs: Height 5 ft 4 in Weight 80 kg Vital Signs Temperature 97.8 F 10/21/24 07:42 Pulse Rate 61 10/21/24 07:42 Respiratory Rate 15 10/21/24 07:42 Blood Pressure 171/77 H 10/21/24 07:42 Pulse Oximetry 95 10/21/24 07:42 Oxygen Delivery Method Room Air 10/21/24 07:42 Temperature 97.8 F 10/21/24 07:42 Pulse Rate 61 10/21/24 07:42 Respiratory Rate 15 10/21/24 07:42 Blood Pressure 168/78 H 10/21/24 08:05 Pulse Oximetry 95 10/21/24 07:42 Oxygen Delivery Method Room Air 10/21/24 07:42 Airway Mallampati Class: II TM Dist: >3cm Neck ROM: Full Partial: Upper Heart: S1S2 Lungs: CTAB Assessment and Plan Assessment Anesthesia Assessment: Anesthesia Plan Discussed and Chart Reviewed Final Anesthetic Review Family History of Problems with Anesthesia: No History of Problems with Anesthesia: Yes (PONV) NPO: Yes ASA Class: II Final Preanesthetic Review: No Changes in Pt Med Stat, Meds/Allgs Chart Reviewed, Consent Obtained/Reviewed and Anes Risks/Benef Reviewed Patient Risk: Low Procedure Risk: Low Anesthetic Plan Anesthetic Plan: GA and Agree w/ Assess. and Plan Disposition: Standard PACU
--- NOTE | 2024-10-21 08:34 | MHC.SHP ---
Pre-Procedural Eval Section A - 24 Hr Update-Section A only Date of Service: 10/21/24 The patient is an INPATIENT: No The patient has been examined within 24 hours of the surgical procedure. The History & Physical has been completed within 30 days and I have reviewed it.: Yes Section B - Complete if H&P > 30 days Chief Complaint: Overactive bladder Allergies: Allergies Allergy/AdvReac Type Severity Reaction Status Date / Time atorvastatin (From Lipitor) AdvReac Intermediate muscle ache Verified 10/21/24 07:25 Plan Diagnosis/Plan: Unchanged I have reviewed the history and physical and performed a pertinent physical examination on my patient. No changes have occurred unless specified. Cystoscopy Botox bladder injection 100 units.I have discussed risks to include hematuria, UTI, urinary retention, need to repeat procedure for sustained efficacy. Time Spent With Patient Time: Total time managing care of this patient today ____ minutes.
--- NOTE | 2024-10-21 08:34 | W.PM.OPN ---
Operative Note Operative Note Date of Service: 10/21/24 Narrative: PREOP DIAGNOSIS: Overactive bladder OAB POSTOP DIAGNOSIS: OAB PROCEDURE: CYSTOSCOPY, BLADDER BOTOX INJECTION 100 UNITS SURGEON: Yaneli Ball MD ANESTHESIA: General Details of procedure: The patient was brought into the operating room placed on the OR table in supine position. Antibiotics confirmed. General anesthesia was administered. The patient was repositioned into lithotomy position, prepped and draped in the usual sterile fashion. Time-out was done per protocol. A 22 fr cystoscope was placed transurethrally into the bladder. Urine was sent for culture. The right and left ureteral orifices were visualized. There were moderate trabeculations noted. There were no suspicious bladder lesions seen. The Botox 100 units was mixed with 10 cc of normal saline and transurethral injections were placed into the posterior wall of the bladder. 0.5cc placed at each injection site. Injections were placed in a grid 5 across and 4 longitudinally. Injections were placed from the inferior to superior position. 2% lidocaine urojet was passed transurethrally into the bladder. The patient was brought out of anesthesia and taken to recovery in stable condition. Complications: None EBL: minimal (<5 mL) Drains: none
[2024-10-21 09:22] VITALS: BP 121/56; PULSE 59; RESP 15; TEMP 36.8; O2SAT 95
[2024-10-21 09:37] VITALS: BP 139/61; PULSE 65; RESP 14; O2SAT 97
[2024-10-21 09:52] VITALS: BP 128/65; PULSE 61; RESP 20; TEMP 36.8; O2SAT 98
== END 2024-10-21 10:22 | disposition home or self-care (01) ==
PROVIDERS: PCP Family Medicine; Visit Provider Urology
PROC: 3E0K8GC Introduction of Other Therapeutic Substance into Genitourinary Tract, Via Natural or Artificial Opening Endoscopic (ICD-10-PCS; CPT 52287; principal; 2024-10-21 09:00)
DX: N32.81 Overactive bladder (principal); N39.46 Mixed incontinence; M79.7 Fibromyalgia; E03.9 Hypothyroidism, unspecified; F41.9 Anxiety disorder, unspecified; Z98.82 Breast implant status; Z88.8 Allergy status to other drugs, medicaments and biological substances; Z98.890 Other specified postprocedural states
CPT/HCPCS: 52287; 87086; J0585; J0690; J2003; J2704

== ENCOUNTER → 2024-10-21 07:17 | Outpatient (BNV) | payer MEDICARE, SELFPAY | PROVIDERS: PCP Family Medicine; Visit Provider Urology | DX: N32.81 Overactive bladder (principal) | CPT/HCPCS: 52287 ==

== ENCOUNTER 2024-11-11 14:26 | Outpatient (AMB) | payer MEDICARE, SELFPAY ==
--- NOTE | 2024-11-11 14:46 | AM.OFFVISNUR ---
Intake Visit Reasons: botox / PVR/UA Allergies atorvastatin (From Lipitor) Adverse Reaction (Intermediate, Verified 10/21/24 07:25) muscle ache Office Procedures Post Void Residual Post Residual Void Details: Patient presents to the office for a PVR check s/p bladder Botox with Dr. Urias 2 weeks ago. Patient reports she feels she has a uti. Reports increase in urinary frequency, but denies any pain or burning. Patient provided clean catch urine sample. PVR scan was 40 ml. Urine dipped in office showing Elevated Leukocytes and + nitrites. Reviewed with Dr. Monique in office. Treated with Macrobid bid x7 days. Urine sent to lab for culture. Post Void Residual (PVR): 40 [id number] Void Residual by ultrasound Assessment & Plan Assessment & Plan Orders: Orders AMB Post Void Residual by ultrasound Today N3.81 - Overactive bladder Urine Culture Today N32.81 - Overactive bladder AMB Urinalysis Automated Today Z13.9 - Encounter for screening, unspecified Medications: New nitrofurantoin monohyd/m-cryst 100 mg (Macrobid) must administer with a meal/food 100 mg PO BID 14 caps 0RF 7 days Discontinued sulfamethoxazole-trimethoprim 800-160 mg (Bactrim DS) Discontinued Reason: Patient Completed Course 1 tab PO BID 3 days 6 tabs 0RF Coding CPT Codes Post Residual Void - PVR CPT Code: [id number] Void Residual by ultrasound ([id number])
--- OUTSIDE RECORDS SUMMARY | 2024-11-11 15:21 | XMS_ITS | Encounter Summary ---
Author Organization [facility] Address [address] [facility] [address] [place] [address] Phone Care Team Providers Care Manager Nursing Home Name Role Phone Aroldo Blas MD Primary Care Provider [phone] Aroldo Blas MD Unavailable Encounter Details Date Type Department Care Team (Latest Contact Info) Description 10/26/2022 Ancillary Orders [address] [id number] Sivan Schmitz MD [address] [place] [address] Orthopedics & Sports Medicine, [place], [place] [phone] [email or web address] Osteoarthritis of left hip, unspecified osteoarthritis type Social History Tobacco Use Types Packs/Day Years Used Date Smoking Tobacco: Never Smokeless Tobacco: Never Alcohol Use Standard Drinks/Week Comments Yes 0 (1 standard drink = 0.6 oz pur e alcohol) Child or Family Care Answer Date Record ed Do you have problems with on e of the following making it difficult for you to work, study, or receive health care? No 06/30/2020 Education Answer Date Recorded Are you interested in more education? Not on meche e 07/28/2022 Are you concerned about learning? Not on file 07/28/2022 No 07/28/2022 No 07/28/2022 Food Answer Date Recorded Within the past 6 months we worried whether our food would run out before we got money to buy more. Never True 06/30/2020 Within the past 6 months the food we bought just didn't last and we didn't have enough money to get more. Never True Paying for Meds Answer Date Recorded Do you have trouble paying for medicines? No 06/30/2020 Paying Utility Bills Answer Date Record ed Do you have trouble paying your heating or elect ricity bill? No 06/30/2020 Transportation Answer Date Recorded Has the lack of transportati on kept you from medical appointments or from getting medications? No 06/30/2020 Digital Access Answer Date Recorded No 08/23/2022 No 08/23/2022 Reliable internet access at home? Not on file 08/23/2022 Device with a working camera? Not on file Comments No Sex and Gender Information Value Date Recorded Sex Assigned at Not on file Legal Sex Female 10:02 PM EDT Gender Identity Not on file Sexual Orientation Not on file documented as of this encounter Plan of Treatment Upcoming Encounters Date Type Department Care Team (Late st Contact Info) Description 11/18/2024 3:30 PM EDT Office Visit [address] [address] Rell Villa MD [address] [facility], [place] [address] Kaya Mahoney, PT [address] [place] [address] 11/24/2024 2:00 PM EDT Office Visit [facility] [address] [place] [address] Rell Villa MD [address] [facility], [place] [address] Kaya Mahoney, PT [address] [place] [address] 12/05/2024 1:45 PM EDT Office Visit [address] [address] Rell Villa MD [address] [place], [place] [address] [place] [address] Chau Arzate, SL[employer]OPER [address] [place] [address] 12/09/2024 2:00 PM EDT Office Visit [facility] [address] [place] [address] Rell Villa MD 4 [facility] Orthopedics Sports Medicine, [place] [address] Kaya Mahoney, PT [address] [place] [address] 12/16/2024 4:15 PM EDT Office Visit [facility] [address] [place] [address] Rell Villa MD 4 [facility] Orthopedics [facility], [place] [address] Kaya Mahoney, PT [address] [place] [address] 12/23/2024 4:15 PM EDT Office Visit [facility] [address] [place] [address] Rell Villa MD 4 [facility], [place] [address] Kaya Mahoney, PT [address] [place] [address] 12/30/2024 2:00 PM EDT Office Visit [facility] [address] [place] [address] Rell Villa MD 4 [facility] Orthopedics Sports Medicine, [place] [address] Kaya Mahoney, PT [address] [place] [address] 01/06/2025 1:30 PM EDT Office Visit [facility] Orthopedics & Sports Medicine [address] [place] [address] Rell Villa MD [address] [place] [address] Sports [facility], [place] [address] 01/06/2025 2:00 PM EDT Office Visit [facility] [address] [place] [address] Rell Villa MD [address] [place] [address] [place] [address] Kaya Mahoney, PT [address] [place] [address] 04/10/2025 9:30 AM EST Office Visit [facility] [address] [place] [address] Aroldo Blas MD [address] [facility] [address] [place] [address] Pending Results Name Type Priority Associated Diagnoses Date /Time FL Guidance Needle Placement Non-Spine Imaging Routine Osteoarthritis of left hip, unspecified osteoarthritis type 10/31/2022 11:48 AM EDT Scheduled Orders Name Type Priority Associated Diagnoses Orde r Schedule FL Guidance Needle Placement Non-Spine Imaging Routine Osteoarthritis of left hip, unspecified osteoarthritis type 1 Occurrences starting 10/26/2022 until 01/26/2023 documented as of this encounter Visit Diagnoses Diagnosis Osteoarthritis of left hip, unspecified osteoarthritis type documented in this encounter Additional Health Concerns Assessment Noted Time PHQ-2 Depression Total Score: 0 08/30/19 2:56 PM EDT documented as of this encounter Care Teams Manager Nursing Home Relationship Specialty Start Date End Date Aroldo Blas MD [address] [facility] [address] [place] [address] PCP - General Family Medicine 02/17/22 Aroldo Blas MD [address] [facility] [address] [place] [address] Insurance Assigned Provider 07/07/23 documented as of this encounter Additional Source Comments The information contained in this document represents components of the legal health record. It is not the complete legal health record.[facility]
--- OUTSIDE RECORDS SUMMARY | 2024-11-11 15:22 | XMS_ITS | Patient Health Record ---
Author Organization [facility] [place] Address [address] [place] [address] Care Team Providers Care Piano Case And Bench Assembler Name Role Phone Tonya Gomez Primary Care Provider Rosalina Jain Unavailable [phone] Allergies No Known Allergies Reason For Referral [...] day(s) Active Loprox 0.77 % 1 application Lens Cementer ally Twice a day 06/02/2021 Not-Taking lamoTRIgine [...] Problems Encounters Encounter Location Date Provider Diagnosis [facility] [place] [address] [place] [address] 01/07/2024 Rosalina Boles Plan Of Treatment Pending Test Test Name Order Date *Liver Function Test (LFT) 09/12/2021 [id number] NAIL, 6 OR MORE 09/12/2021 [id number] NAIL, 6 OR MORE 11/20/2022 [id number] Plate 09/12/2021 Insurance Providers Payer Name Payer Address Payer Phone Subscriber Number Group Number Insured Name Patient Relationship to Insured Coverage Start Date Coverage End Date Medicare [facility] [employer] [address] [place] [address] [id number] Cindy Keith Self - patient is the insured [employer] [address] [place] [address] [phone] [id number] Cindy Keith Self - patient is the insured Medical (General) History Medical History History ICD Code Arthritis Back,Hip,and Knee pain Fibromyalgia Measles Chicken pox Surgical History Surgery Date(Month/Year) imbilical hernia 1999 plantar fasciiatis 2001 interstem 2012 rotater cuff, right Hospitalization History Reason Date(Month/Year) Enter [facility] 05/2020
--- OUTSIDE RECORDS SUMMARY | 2024-11-11 15:22 | XMS_ITS | Clinical Summary ---
Author Organization [facility] Address [address] [place] [address] Care Team Providers Care Midlevel Provider Name Role Phone Tonya Gomez MD Primary Care Provider [phone] Immunizations Name Administration Dates Next Due Covid-19 [...] age to complete this topic Care Teams Midlevel Provider Relationship Specialty Start Date End Date Tonya Gomez MD [address] [address] [place] [address] PCP - General Family Medicine 07/10/20
== END 2024-11-11 16:11 | disposition home or self-care (01) ==
LOC: HO.HUSH 14:26
PROVIDERS: PCP Family Medicine; Visit Provider Urology
DX: Z13.9 Encounter for screening, unspecified (principal)

== ENCOUNTER 2024-11-11 14:26 | Outpatient (REF) | payer MEDICARE, SELFPAY | END 2024-11-11 14:27 | disposition home or self-care (01) | LOC: HO.LNP 14:26 | PROVIDERS: PCP Family Medicine; Visit Provider Urology | DX: Z13.9 Encounter for screening, unspecified (principal); N32.81 Overactive bladder | CPT/HCPCS: 51798; 81003; 87086; 87088; 87186 ==

== ENCOUNTER 2025-01-22 13:14 | Outpatient (REF) | payer MEDICARE, SELFPAY ==
--- OUTSIDE RECORDS SUMMARY | 2017-11-26 03:00 | XMS_ITS | Continuity of Care Document ---
Author Organization [facility] Address [address] [facility] [address] [place] [phone] Phone Care Team Providers Care Line Up Machine Operator Name Role Phone Garett Landers MD Unavailabl e Procedures Procedure Date Sngl/mx Inj Scleros-veins; Diego 18 Sngl/mx Inj Scleros-veins; Diego 18 Advance Directives Directive Yes / No Effective Date File Name No Information Encounters Encounter Description Practice Location Reason(s) For Visit Diagnoses Date Provider Providers Copied on Encounter [facility], [address] [facility] [address], [place], [place], [id number], tel:[phone] [place] - [place] [facility] [place] Spider Veins - (Telangiect ac) Anshul Bajwa. [address], [place], [address], . tel:[phone] Referring Provider: Garett Landers MD F, [address], [place], [address]. tel:[phone] [facility], [address] [facility] [address], [place], [place], [id number], tel:[phone] [place] - [place] [facility] [place] Spider Veins - (Telangiect ac) Anshul Bajwa. [address], [address], [place], [address], . tel:[phone] Referring Provider: Garett Landers MD F, [address] [facility] [address], [place], [address]. tel:[phone] Family History Family Member Type Diagnosis Age At Onset No Information Payers Payer name Insurance type Covered constitution party ID Authoriza tion(s) Self Pay 09 Social [...]
--- OUTSIDE RECORDS SUMMARY | 2025-01-22 19:01 | XMS_ITS | Encounter Summary ---
Author Organization [facility] Address [address] [place] [address] Phone Care Team Providers Care Fleet Sales Associate Name Role Phone Aroldo Blas MD Primary Care Provider [phone] Aroldo Blas MD Unavailable Encounter Details Date Type Department Care Team (Latest Contact Info) Description 10/26/2022 Ancillary Orders [address] [id number] Sivan Schmitz MD [address] [place] [address] Orthopedics [facility] Medicine, [place], [place] [phone] [email or web address] Osteoarthritis of left hip, unspecified osteoarthritis type [...] Upcoming Encounters Date Type Department Care Team (Latest Contact Info) Description 11/28/2024 Procedure Pass [address] [place] [address] 01/15/2025 Procedure Pass [address] [address] 01/15/2025 Procedure Pass [address] [address] 01/27/2025 11:30 AM EDT Office Visit [facility] Rehabilitation Services [address] [place] [address] Rell Villa MD [address] [place] [address] [facility] [place] [address] Kaya Mahoney, PT [address] [place] [address] 02/24/2025 4:25 PM EST Appointment [address] [address] Rell Villa MD [address] [place] [address] [facility] [place] [address] 02/24/2025 5:00 PM EST Appointment [facility], [facility] - [address] [address] Rell Villa MD [address] [place] [address] Orthopedics & Sports [facility] [place] [address] 03/05/2025 11:30 AM EST Office Visit [facility] Orthopedics & Sports Medicine [address] [place] [address] [place] [address] Rell Villa MD [address] [place] [address] Orthopedics Sports [facility], [place] [address] 03/19/2025 Procedure Pass [facility] Admitting Dept Virtual Department [address] [place] [address] 03/19/2025 8:30 AM EST Hospital Encounter [facility] Virtual Department [address] [place] [phone] Billy Kelly MD [address] [place] [phone] maria 03/19/2025 8:30 AM EST - 03/19/2025 9:00 AM EST Surgery [facility]oscopy Admitting Dept Virtual Department [address] [place] [phone] iBlly Kelly MD [address] [place] [phone] maria COLONOSCOPY 04/10/2025 9:30 AM EST Office Visit [address] [address] Aroldo Blas MD [address] [place] [address], [address] [place], [place] [phone] 07/17/2025 8:45 AM EDT Appointment [address] [place] [address] Aroldo Blas MD [address] [place] [address] [address] [place] [phone] [email or web address] Pending Results Name Type Priority Associated Diagnoses Date /Time FL Guidance Needle Placement Non-Spine Imaging Routine Osteoarthritis of left hip, unspecified osteoarthritis type 10/31/2022 11:48 AM EDT Scheduled Orders Name Type Priority Associated Diagnoses Orde r Schedule FL Guidance Needle Placement Non-Spine Imaging Routine Osteoarthritis of left hip, unspecified osteoarthritis type 1 Occurrences starting 10/26/2022 until 01/26/2023 Scheduled Procedures Name Priority Associated Diagnoses Date/Ti me COLONOSCOPY Hx of colonic polyps Polyp of colon, unspecified part of colon, unspecified type 03/19/2025 8:30 AM EST ESOPHAGOGASTRODUODENOSCOPY Hx of colonic polyps Polyp of colon, unspecified part of colon, unspecified type 03/19/2025 8:30 AM EST documented as of this encounter Visit Diagnoses Diagnosis Osteoarthritis of left hip, unspecified osteoarthritis type Hx of colonic polyps Personal history of colonic polyps Polyp of colon, unspecified part of colon, unspecified type documented in this encounter Additional Health Concerns Assessment Noted Time PHQ-2 Depression Total Score: 0 08/30/19 23 2:56 PM EDT documented as of this encounter Care Teams Fleet Sales Associate Relationship Specialty Start Date End Date Aroldo Blas MD [address] [place] [address] 7 [place] [address] PCP - General Family Medicine 02/17/22 Aroldo Blas MD [address] [place] [address], [place] [address] [place] [phone] Insurance Assigned Provider 07/07/23 documented as of this encounter Additional Source Comments The information contained in this document represents components of the legal health record. It is not the complete legal health record.[facility]
--- OUTSIDE RECORDS SUMMARY | 2025-01-22 19:01 | XMS_ITS | Encounter Summary ---
Author Organization [facility] Address [address] [place] [address] Phone Care Team Providers Care Speech Language Pathology Assistant Name Role Phone Tonya Gomez MD Primary Care Provider [phone] Tonya Gomez MD Unavailable [phone] Aroldo Blas MD Primary Care Provider [phone] Aroldo Blas MD Unavailable Encounter Details Date Type Department Care Team (Late st Contact Info) Description 07/01/2020 Ancillary Orders [facility] [address] [place] [address] Tonya Gomez MD [address] [facility] [address] [place] [address] [email or web address] Social History Tobacco Use Types Packs/Day Years Used Date Smoking Tobacco: Never Smokeless Tobacco: Never Child or Family Care Answer Date Record ed Do you have problems with on e of the following making it difficult for you to work, study, or receive health care? No 06/30/2020 Education Answer Date Recorded Are you interested in help w ith more adult education (for example, completing high school, GED, job training, learning the [place] language, technical skills, or developing parenting skills)? No 06/30/2020 Are you concerned about learning? Not on file 06/30/2020 Not on file 06/30/2020 Not on file 06/30/2020 Food Answer Date Recorded Within the past [...] appointments or from getting medications? No 06/30/2020 Comments No Sex and Gender Information Value Date Recorded Sex Assigned at Not on file Legal Sex Female 10:02 PM EDT Gender Identity Not on file Sexual Orientation Not on file documented as of this encounter Plan of Treatment Upcoming Encounters Date Type Department Care Team (Latest Contact Info) Description 11/28/2024 Procedure Pass [address] [place] [address] 01/15/2025 Procedure Pass [address] [address] 01/15/2025 Procedure Pass [address] [address] 01/27/2025 11:30 AM EDT Office Visit [facility] Rehabilitation Services [address] [place] [address] Rell Villa MD [address] [place] [address] [facility] [place] [address] Kaya Mahoney, PT [address] [place] [address] 02/24/2025 4:25 PM EST Appointment [address] [address] Rell Villa MD [address] [place] [address] [facility] [place] [address] 02/24/2025 5:00 PM EST Appointment [facility], [facility] - [address] [address] Rell Villa MD [address] [place] [address] [facility] [place] [address] 03/05/2025 11:30 AM EST Office Visit [facility] Orthopedics & Sports Medicine [address] [place] [address] [place] [address] Rell Villa MD [address] [place] [address] Orthopedics Sports [facility], [place] [address] 03/19/2025 Procedure Pass [facility] Admitting [facility] Virtual Department [address] [place] [address] 03/19/2025 8:30 AM EST Hospital Encounter [facility] Admitting [facility] Virtual Department [address] [place] [address] Billy Kelly MD [address] [place] [address] maria 03/19/2025 8:30 AM EST - 03/19/2025 9:00 AM EST Surgery [facility]oscopy Admitting Dept Virtual Department [address] [place] [address] Billy Kelly MD [address] [place] [address] maria COLONOSCOPY 04/10/2025 9:30 AM EST Office Visit [address] [address] Aroldo Blas MD [address] [place] [address], [address] [place], [place] [phone] 07/17/2025 8:45 AM EDT Appointment [address] [place], [place] [address] Aroldo Blas MD [address] [place] [address], [address] [place] [phone] [email or web address] Scheduled Procedures Name Priority Associated Diagnoses Date/Ti me COLONOSCOPY Hx of colonic polyps Polyp of colon, unspecified part of colon, unspecified type 03/19/2025 8:30 AM EST ESOPHAGOGASTRODUODENOSCOPY Hx of colonic polyps Polyp of colon, unspecified part of colon, unspecified type 03/19/2025 8:30 AM EST documented as of this encounter Results * XR PELVIS AP PLUS FROG OR OUTLET 2 VIEWS (07/01/2020 10:20 AM EDT) Anatomical Region Laterality Modality Hip, Pelvis Computed Radiogr aphy 07/01/2020 12:5 4 PM EDT Narrative 07/01/2020 12:57 PM EDT TECHNIQUE: XR PELVIS AP PLUS FROG OR OUTLET 2 VIEWS CLINICAL HISTORY : Lower back pain and bilateral hip pain. FINDINGS: There is a right lower quadrant electronic stimulator with wire projecting towards the right side of the mid to lower sacrum and metallic surgical mandi project over the lower lumbar sacral region. There is moderate degenerative narrowing of hip joint spaces bilaterally with small superolateral osteophytes larger on the left side. Component of pincer impingement is possible. There is no evidence of hip joint fractures. No evidence of femoral head AVN. Acetabula and ischiopubic rami are intact. Mild osteitis pubis. No bony lytic or expansile lesions. CONCLUSION: Moderate bilateral hip DJD. No evidence of femoral head AVN or hip joint fractures. Procedure Note Aj Vera MD - 07/01/2020 TECHNIQUE: XR PELVIS AP PLUS FROG OR OUTLET 2 VIEWS CLINICAL HISTORY : Lower back pain and bilateral hip pain. FINDINGS: There is a right lower quadrant electronic stimulator with wire projectingtowards the right side of the mid to lower sacrum and metallic surgicalstaples project over the lower lumbar sacral region. There is moderate degenerative narrowing of hip joint spaces bilaterallywith small superolateral osteophytes larger on the left side. Component ofpincer impingement is possible. There is no evidence of hip joint fractures. No evidence of femoral headAVN. Acetabula and ischiopubic rami are intact. Mild osteitis pubis. No bony lytic or expansile lesions. CONCLUSION: Moderate bilateral hip DJD. No evidence of femoral head AVN or hip jointfractures. us Tonya Gomez MD IMG XR PELVIS Final Result documented in this encounter Visit Diagnoses Diagnosis Hip pain Pain in joint, pelvic region and thigh Hip pain Pain in joint, pelvic region and thigh Hx of colonic polyps Personal history of colonic polyps Polyp of colon, unspecified part of colon, unspecified type documented in this encounter Additional Health Concerns Assessment Noted Time PHQ-2 Depression Total Score: 0 10/03/19 19 1:35 PM EDT documented as of this encounter Care Teams Speech Language Pathology Assistant Relationship Specialty Start Date End Date Tonya Gomez MD [address] [place] [address] 7 [place] [phone] [email or web address] PCP - General 01/15/17 02/16/22 Aroldo Blas MD [address] [place] [address] 7 [place] [address] PCP - General Family Medicine 02/17/22 Tonya Gomez MD [address] [place] [address] 7 [place] [address] [email or web address] Insurance Assigned Provider 07/10/2007/08/22 Aroldo Blas MD [address] [place] [address] 7 [place] [phone] [email or web address] Insurance Assigned Provider 07/07/23 documented as of this encounter Additional Source Comments The information contained in this document represents components of the legal health record. It is not the complete legal health record.[facility]
--- OUTSIDE RECORDS SUMMARY | 2025-01-22 19:01 | XMS_ITS | Encounter Summary ---
Author Organization [facility] Address [address] [facility] [address] [place] [address] Phone Care Team Providers Care Outside Operator Name Role Phone Tonya Gomez MD Primary Care Provider [phone] Tonya Gomez MD Unavailable [phone] Tonya Gomez MD Unavailable [phone] Aroldo Blas MD Primary Care Provider [phone] Aroldo Blas MD Unavailable Encounter Details Date Type Department Care Team (Late st Contact Info) Description 10/02/2019 Procedure Pass [facility] Endoscopy Admitting Dept Virtual Department [address] [place] [address] Social History Tobacco Use Types Packs/Day Years Used Date Smoking Tobacco: Never Smokeless Tobacco: Never Comments No Sex and Gender Information Value Date Recorded Sex Assigned at Not on file Legal Sex Female 10:02 PM EDT Gender Identity Not on file Sexual Orientation Not on file documented as of this encounter Plan of Treatment Upcoming Encounters Date Type Department Care Team (Latest Contact Info) Description 11/28/2024 Procedure Pass [address] [place] [address] 01/15/2025 Procedure Pass [address] [address] 01/15/2025 Procedure Pass [address] [address] 01/27/2025 11:30 AM EDT Office Visit [facility] Services [address] [place] [address] Rell Villa MD [address] [facility] Orthopedics & Sports [facility], [place] [address] [email or web address] Kaya Mahoney, PT [address] [place] [address] 02/24/2025 4:25 PM EST Appointment [address] [address] Rell Villa MD [address] [place] [address] Orthopedics Sports [facility], [place] [address] [email or web address] 02/24/2025 5:00 PM EST Appointment [address] [address] Rell Villa MD 4 [facility] Orthopedics Sports [facility], [place] [address] [email or web address] 03/05/2025 11:30 AM EST Office Visit [facility] Orthopedics & Sports Medicine [address] [place] [address] [place] [address] Rell Villa MD 4 [facility] Orthopedics Sports [facility], [place] [address] [email or web address] 03/19/2025 Procedure Pass [facility] Admitting Dept Virtual Department [address] [place] [address] 03/19/2025 8:30 AM EST Hospital Encounter [facility] Endoscopy Admitting Dept Virtual Department [address] [place] [address] Billy Kelly MD [address] [place] [address] maria 03/19/2025 8:30 AM EST - 03/19/2025 9:00 AM EST Surgery [facility] Endoscopy Admitting Dept Virtual Department 30 [place] [address] Billy Kelly MD [address] [place] [address] maria COLONOSCOPY 04/10/2025 9:30 AM EST Office Visit [facility] [address] [place] [address] Aroldo Blas MD [address] [facility], [facility] 7 [place] [address] 07/17/2025 8:45 AM EDT Appointment [facility] - [address] [place] [address] Aroldo Blas MD 234 [facility] 7 [place] [address] [email or web address] Scheduled Procedures Name Priority Associated Diagnoses Date/Ti me COLONOSCOPY Hx of colonic polyps Polyp of colon, unspecified part of colon, unspecified type 03/19/2025 8:30 AM EST ESOPHAGOGASTRODUODENOSCOPY Hx of colonic polyps Polyp of colon, unspecified part of colon, unspecified type 03/19/2025 8:30 AM EST documented as of this encounter Visit Diagnoses Not on filedocumented in this encounter Additional Health Concerns Assessment Noted Time PHQ-2 Depression Total Score: 0 10/03/19 19 1:35 PM EDT documented as of this encounter Care Teams Outside Operator Relationship Specialty Start Date End Date Tonya Gomez MD [address] [facility], [facility] 7 [place] [address] PCP - General 01/15/17 02/16/22 Aroldo Blas MD [address] [place] [address], [address] [place] [address] [email or web address] PCP - General Family Medicine 02/17/22 Tonya Gomez MD [address] [place] [address], [address] [place] [address] [email or web address] Insurance Assigned Provider 07/09/1911/06/19 Tonya Gomez MD [address] [place] [address], [address] [place] [address] [email or web address] Insurance Assigned Provider 07/10/2007/08/22 Aroldo Blas MD [address] [place] [address], [address] [place] [address] [email or web address] Insurance Assigned Provider 07/07/23 documented as of this encounter Additional Source Comments The information contained in this document represents components of the legal health record. It is not the complete legal health record.[facility]
--- OUTSIDE RECORDS SUMMARY | 2025-01-22 19:01 | XMS_ITS | Encounter Summary ---
Author Organization [facility] Address [address] [facility] [address] [place] [address] Phone Care Team Providers Care Music Educator Name Role Phone Tonya Gomez MD Unavailable [phone] Aroldo Blas MD Primary Care Provider [phone] Aroldo Blas MD Unavailable Encounter Details Date Type Department Care Team (Late st Contact Info) Description 06/16/2022 Ancillary Orders [facility] Medicine [address] [place] [address] Tonya Gomez MD 234 [facility] [address] [place] [address] [email or web address] Palpitations Social History Tobacco Use Types Packs/Day Years [...] high school, GED, job training, learning the Tristanian language, technical skills, or developing parenting skills)? [...] (Latest Contact Info) Description 11/28/2024 Procedure Pass [address] [place] [address] 01/15/2025 Procedure Pass [address] [address] 01/15/2025 Procedure Pass [address] [address] 01/27/2025 11:30 AM EDT Office Visit [facility] Rehabilitation Services [address] [place] [address] Rell Villa MD [address] [place] [address] [facility] [place] [place] [address] Kaya Mahoney, PT 380 [place] [address] 02/24/2025 4:25 PM EST Appointment [address] [address] Rell Villa MD [address] [place] [address] Orthopedics Sports [facility] [place] [address] 02/24/2025 5:00 PM EST Appointment [facility], [facility] - [address] [address] Rell Villa MD [address] [place] [address] [facility] [place] [address] 03/05/2025 11:30 AM EST Office Visit [facility] Orthopedics & Sports Medicine [address] [place] [address] [place] [address] Rell Villa MD [address] [place] [address] Orthopedics Sports [facility], [place] [address] 03/19/2025 Procedure Pass [facility] Endoscopy Admitting Dept Virtual Department [address] [place] [address] 03/19/2025 8:30 AM EST Hospital Encounter [facility] Endoscopy Admitting Dept Virtual Department [address] [place] [address] Billy Kelly MD [address] [place] [address] maria 03/19/2025 8:30 AM EST - 03/19/2025 9:00 AM EST Surgery [facility] Endoscopy Admitting Dept Virtual Department [address] [place] [address] Billy Kelly MD [address] [place] [address] maria COLONOSCOPY 04/10/2025 9:30 AM EST Office Visit [address] [address] Aroldo Blas MD [address] [place] [address], [address] [place], [place] [phone] [email or web address] 07/17/2025 8:45 AM EDT Appointment [address] [place] [address] Aroldo Blas MD [address] [place] [address], [facility] 7 [place] [address] [email or web address] Scheduled Orders Name Type Priority Associated Diagnoses Orde r Schedule MCT (Mobile Cardiac Telemetry) Cardiac Monitors Routine Palpitations Expected: 03/05/2022, Expires: 08/03/2022 Scheduled Procedures Name Priority Associated Diagnoses Date/Ti me COLONOSCOPY Hx of colonic polyps Polyp of colon, unspecified part of colon, unspecified type 03/19/2025 8:30 AM EST ESOPHAGOGASTRODUODENOSCOPY Hx of colonic polyps Polyp of colon, unspecified part of colon, unspecified type 03/19/2025 8:30 AM EST documented as of this encounter Visit Diagnoses Diagnosis Palpitations Hx of colonic polyps Personal history of colonic polyps Polyp of colon, unspecified part of colon, unspecified type documented in this encounter Additional Health Concerns Assessment Noted Time PHQ-2 Depression Total Score: 2 01/26/20 21 9:30 AM EDT documented as of this encounter Care Teams Music Educator Relationship Specialty Start Date End Date Aroldo Blas MD [address] [place] [address] 7 [place] [address] [email or web address] PCP - General Family Medicine 02/17/22 Tonya Gomez MD [address] [place] [address] 7 [place] [address] [email or web address] Insurance Assigned Provider 07/10/2007/08/22 Aroldo Blas MD [address] [place] [address] [address] [place] [address] [email or web address] Insurance Assigned Provider 07/07/23 documented as of this encounter Additional Source Comments The information contained in this document represents components of the legal health record. It is not the complete legal health record.[facility]
--- OUTSIDE RECORDS SUMMARY | 2025-01-22 19:01 | XMS_ITS | Encounter Summary ---
Author Organization [facility] Address [address] [facility] [address] [place] [address] Phone Care Team Providers Care Research Statistician Name Role Phone Aroldo Blas MD Primary Care Provider [phone] Aroldo Blas MD Unavailable Encounter Details Date Type Department Care Team ([facility] st Contact Info) Description 10/26/2022 Ancillary Orders [facility] Orthopedics & Sports Medicine [address] [place] [id number] Sivan Schmitz MD [address] [place] [address] Orthopedics & Sports Medicine, [facility] [place] [address] [email or web address] Social History Tobacco Use Types Packs/Day Years [...] (Latest Contact Info) Description 11/28/2024 Procedure Pass [address] [place] [address] 01/15/2025 Procedure Pass [address] [address] 01/15/2025 Procedure Pass [address] [address] 01/27/2025 11:30 AM EDT Office Visit [facility] Rehabilitation Services [address] [place] [address] Rell Villa MD [address] [place] [address] [facility] [place] [address] Kaya Mahoney, PT 380 [place] [address] [email or web address] 02/24/2025 4:25 PM EST Appointment [address] [address] Rell Villa MD [address] [place] [address] Orthoped[facility] [place] [address] 02/24/2025 5:00 PM EST Appointment [facility], [facility] - [address] [address] Rell Villa MD [address] [place] [address] [facility] [place] [address] 03/05/2025 11:30 AM EST Office Visit [facility] Medicine [address] [place] [address] [place] [address] Rell Villa MD [address] [place] [address] Orthopedics Sports [facility], [place] [address] 03/19/2025 Procedure Pass [facility] Endoscopy Admitting Dept Virtual Department [address] [place] [address] 03/19/2025 8:30 AM EST Hospital Encounter [facility] Endoscopy Admitting Dept Virtual Department [address] [place] [address] Billy Kelly MD [address] [place] [address] maria 03/19/2025 8:30 AM EST - 03/19/2025 9:00 AM EST Surgery [facility] Endoscopy Admitting Dept Virtual Department [address] [place] [address] Billy Kelly MD [address] [place] [address] maria COLONOSCOPY 04/10/2025 9:30 AM EST Office Visit [address] [address] Aroldo Blas MD [address] [place] [address], [address] [place], [place] [address] 07/17/2025 8:45 AM EDT Appointment [address] [place] [address] Aroldo Blas MD 234 [facility], [address] [place] [address] Scheduled Procedures Name Priority Associated Diagnoses Date/Ti [...] documented as of this encounter Care Teams Research Statistician Relationship Specialty Start Date End Date Aroldo Blas MD [address] [place] [address], [address] [place] [address] PCP - General Family Medicine 02/17/22 Aroldo Blas MD [address] [place] [address], [address] [place] [address] Insurance Assigned Provider 07/07/23 documented as of this encounter Additional Source Comments The information contained in this document represents components of the legal health record. It is not the complete legal health record.[facility]
--- OUTSIDE RECORDS SUMMARY | 2025-01-22 19:01 | XMS_ITS | Patient Health Record ---
Author Organization [facility] Address [address] [place] [address] Care Team Providers Care Managed Care Nurse Name Role Phone Tonya Gomez Primary Care Provider Rosalina Jain Unavailable [phone] Allergies No Known Allergies Reason For Referral [...] day(s) Active Loprox 0.77 % 1 application [employer] Twice a day 06/02/2021 Not-Taking lamoTRIgine [...] tobacco user? No Problems No Known Problems Plan Of Treatment Pending Test Test Name Order Date *Liver Function Test (LFT) 09/12/2021 [id number] NAIL, 6 OR MORE 09/12/2021 [id number] NAIL, 6 OR MORE 11/20/2022 [id number] Plate 09/12/2021 Insurance Providers Payer Name Payer Address Payer Phone Subscriber Number Group Number Insured Name Patient Relationship to Insured Coverage Start Date Coverage End Date Medicare National Govt Svcs Inc [address] [place] [address] [id number] Cindy Keith Self - patient is the insured [employer] Blue Shield [address] [place] [address] [phone] [id number] Cindy Keith Self - patient is the insured Medical (General) History Medical History History ICD Code Arthritis Back,Hip,and Knee pain Fibromyalgia Measles Chicken pox Surgical History Surgery Date(Month/Year) imbilical hernia 1999 plantar fasciiatis 2001 interstem 2012 rotater cuff, right Hospitalization History Reason Date(Month/Year) Enter [facility] 05/2020
--- OUTSIDE RECORDS SUMMARY | 2025-01-22 19:01 | XMS_ITS | Encounter Summary ---
Author Organization [facility] Address [address] [place] [address] Phone Care Team Providers Care Hand Mexican Food Maker Name Role Phone Aroldo Blas MD Primary Care Provider [phone] Aroldo Blas MD Unavailable Encounter Details Date Type Department Care Team (Late st Contact Info) Description 03/29/2023 Procedure Pass [facility] - [address] [address] Social History Tobacco Use Types Packs/Day Years [...] (Latest Contact Info) Description 11/28/2024 Procedure Pass [address] [place] [address] 01/15/2025 Procedure Pass [address] [address] 01/15/[address] [address] 01/27/2025 11:30 AM EDT Office Visit [facility] Rehabilitation Services [address] [place] [address] Rell Villa MD [address] [place] [address] [facility] [place] [address] Kaya Mahoney, PT [address] [place] [address] 02/24/2025 4:25 PM EST Appointment [address] [address] Rell Villa MD [address] [place] [address] [facility] [place] [address] [email or web address] 02/24/2025 5:00 PM EST Appointment [address] [address] Rell Villa MD [address] [place] [address] Orthopedics & Sports [facility], [place] [address] 03/05/2025 11:30 AM EST Office Visit [facility] Orthopedics & Sports [address] [place] [address] Rell Villa MD [address] [place] [address] Orthopedics Sports [facility], [place] [address] 03/19/2025 Procedure Pass [facility] Endoscopy Admitting Dept Virtual Department [address] [place] [address] 03/19/2025 8:30 AM EST Hospital Encounter [facility] Endoscopy Admitting Dept Virtual Department [address] [place] [address] Billy Kelly MD [address] [place] [address] maria 03/19/2025 8:30 AM EST - 03/19/2025 9:00 AM EST Surgery [facility] Endoscopy Admitting Dept Virtual Department [address] [place] [address] Billy Kelly MD [address] [place] [address] maria COLONOSCOPY 04/10/2025 9:30 AM EST Office Visit [address] [address] Aroldo Blas MD [address] [place] [address], [facility] 7 [place] [address] 07/17/2025 8:45 AM EDT Appointment [facility] - [address] [place] [address] Aroldo Blas MD 234 [facility], [address] [place] [address] [email or web address] Scheduled Procedures Name Priority Associated Diagnoses Date/Ti [...] documented as of this encounter Care Teams Hand Mexican Food Maker Relationship Specialty Start Date End Date Aroldo Blas MD 234 [facility], [address] [place] [address] [email or web address] PCP - General Family Medicine 02/17/22 Aroldo Blas MD 234 [facility], [address] [place] [address] [email or web address] Insurance Assigned Provider 07/07/23 documented as of this encounter Additional Source Comments The information contained in this document represents components of the legal health record. It is not the complete legal health record.[facility]
--- OUTSIDE RECORDS SUMMARY | 2025-01-22 19:01 | XMS_ITS | Encounter Summary ---
Author Organization [facility] Address [address] [facility] [address] [place] [address] Phone Care Team Providers Care Blanket Washer Name Role Phone Tonya Gomez MD Primary Care Provider [phone] Toyna Gomez MD Unavailable [phone] Aroldo Blas MD Primary Care Provider [phone] Aroldo Blas MD Unavailable Encounter Details Date Type Department Care Team (Late st Contact Info) Description 03/16/2020 [address] [place] [address] Social History Tobacco Use Types Packs/Day Years [...] (Latest Contact Info) Description 11/28/2024 Procedure Pass [address] [place] [address] 01/15/2025 Procedure Pass [address] [address] 01/15/2025 Procedure Pass [address] [address] 01/27/2025 11:30 AM EDT Office Visit [facility] Rehabilitation Services [address] [place] [address] Rell Villa MD [address] [place] [address] [facility] [place], [place] [address] [email or web address] Kaya Mahoney, PT [address] [place] [address] 02/24/2025 4:25 PM EST Appointment [address] [address] Rell Villa MD [address] [place] [address] Orthopedics Sports [facility], [place] [address] [email or web address] 02/24/2025 5:00 PM EST Appointment [address] [address] Rell Villa MD [address] [place] [address] Orthopedics Sports [facility], [place] [address] [email or web address] 03/05/2025 11:30 AM EST Office Visit [facility] Orthopedics & Sports Medicine [address] [place] [address] [place] [address] Rell Villa MD [address] [place] [address] Orthopedics Sports [facility], [place] [address] [email or web address] 03/19/2025 Procedure Pass [facility] Endoscopy Admitting Dept Virtual Department [address] [place] [address] 03/19/2025 8:30 AM EST Hospital Encounter [facility] Endoscopy Admitting Dept Virtual Department [address] [place] [address] Billy Kelly MD [address] [place] [address] maria 03/19/2025 8:30 AM EST - 03/19/2025 9:00 AM EST Surgery [facility] Endoscopy Admitting Dept Virtual Department 30 [place] [address] Billy Kelly MD [address] [address] maria COLONOSCOPY 04/10/2025 9:30 AM EST Office Visit [facility] 234 [place] [address] Aroldo Blas MD 234 [facility] 7 [place] [address] [email or web address] 07/17/2025 8:45 AM EDT Appointment [facility] - [address] [place] [address] Aroldo Blas MD 234 [facility] 7 [place] [address] [email or web address] Scheduled Procedures Name Priority Associated Diagnoses Date/Ti [...] documented as of this encounter Care Teams Blanket Washer Relationship Specialty Start Date End Date Tonya Gomez MD [address] [place] [address] [place] [address] [email or web address] PCP - General 01/15/17 02/16/22 Aroldo Blas MD [address] [place] [address] 7 [place] [address] [email or web address] PCP - General Family Medicine 02/17/22 Tonya Gomez MD [address] [place] [address], [address] [place] [address] [email or web address] Insurance Assigned Provider 07/10/2007/08/22 Aroldo Blas MD [address] [place] [address] [address] [place] [address] [email or web address] Insurance Assigned Provider 07/07/23 documented as of this encounter Additional Source Comments The information contained in this document represents components of the legal health record. It is not the complete legal health record.[facility]
--- OUTSIDE RECORDS SUMMARY | 2025-01-22 19:01 | XMS_ITS | Encounter Summary ---
Author Organization [facility] Address [address] [facility] [address] [place] [address] Phone Care Team Providers Care Sales And Merchandising Associate Name Role Phone Tonya Gomez MD Primary Care Provider [phone] Tonya Gomez MD Unavailable [phone] Aroldo Blas MD Primary Care Provider [phone] Aroldo Blas MD Unavailable Encounter Details Date Type Department Care Team (Late st Contact Info) Description 05/17/2020 Procedure Pass [address] [place] [address] Social History Tobacco Use Types Packs/Day Years [...] (Latest Contact Info) Description 11/28/2024 Procedure Pass [address] [place] [address] 01/15/2025 Procedure Pass [address] [address] 01/15/2025 Procedure Pass [address] [address] 01/27/2025 11:30 AM EDT Office Visit [facility] [address] [place] [address] Rell Villa MD 4 [facility] [place], [place] [address] Kaya Mahoney, PT [address] [place] [address] 02/24/2025 4:25 PM EST Appointment [address] [address] Rell Villa MD [address] [place] [address] Orthopedics Sports [facility], [place] [address] 02/24/2025 5:00 PM EST Appointment [address] [address] Rell Villa MD [address] [place] [address] Orthopedics Sports [facility], [place] [address] 03/05/2025 11:30 AM EST Office Visit [facility] Orth[facility]ics & Sports Medicine [address] [place] [address] [place] [address] Rell Villa MD [address] [place] [address] Orthopedics Sports [facility], [place] [address] 03/19/2025 Procedure Pass [facility] Admitting Dept Virtual Department [address] [place] [address] 03/19/2025 8:30 AM EST Hospital Encounter [facility]mitting [facility] Virtual Department [address] [place] [address] Billy Kelly MD [address] [place] [address] maria 03/19/2025 8:30 AM EST - 03/19/2025 9:00 AM EST Surgery [facility] Endoscopy Admitting Dept Virtual Department 30 [place] [address] Billy Kelly MD 10 [facility] 2 [place] [address] maria COLONOSCOPY 04/10/2025 9:30 AM EST Office Visit [facility] [address] [place] [address] Aroldo Blas MD 234 [facility] 7 [place] [address] 07/17/2025 8:45 AM EDT Appointment [facility] - [address] [place] [address] Aroldo Blas MD 234 [facility] 7 [place] [address] [email or web address] Scheduled Procedures Name Priority Associated Diagnoses Date/Ti [...] documented as of this encounter Care Teams Sales And Merchandising Associate Relationship Specialty Start Date End Date Tonya Gomez MD [address] [place] [address] [place] [address] [email or web address] PCP - General 01/15/17 02/16/22 Aroldo Blas MD [address] [place] [address] 7 [place] [address] [email or web address] PCP - General Family Medicine 02/17/22 Tonya Gomez MD [address] [place] [address], [address] [place] [address] [email or web address] Insurance Assigned Provider 07/10/2007/08/22 Aroldo Blas MD [address] [place] [address], [address] [place] [address] [email or web address] Insurance Assigned Provider 07/07/23 documented as of this encounter Additional Source Comments The information contained in this document represents components of the legal health record. It is not the complete legal health record.[facility]
--- OUTSIDE RECORDS SUMMARY | 2025-01-22 19:01 | XMS_ITS | Encounter Summary ---
Author Organization [facility] Address [address] [facility] [address] [place] [address] Phone Care Team Providers Care Regional Property Manager Name Role Phone Tonya Gomez MD Primary Care Provider [phone] Tonya Gomez MD Unavailable [phone] Aroldo Blas MD Primary Care Provider [phone] Aroldo Blas MD Unavailable Encounter Details Date Type Department Care Team (Late st Contact Info) Description 03/05/2020 Procedure Pass [address] [place] [address] Social History Tobacco Use Types Packs/Day Years [...] (Latest Contact Info) Description 11/28/2024 Procedure Pass [address] [place] [address] 01/15/2025 Procedure Pass [address] [address] 01/15/2025 Procedure Pass [address] [address] 01/27/2025 11:30 AM EDT Office Visit [facility] [address] [place] [address] Rell Villa MD [address] [facility] [place] [address] Kaay Mahoney, PT 380 [place] [address] 02/24/2025 4:25 PM EST Appointment [address] [address] Rell Villa MD [address] [place] [address] Orthopedics Sports [facility], [place] [address] 02/24/2025 5:00 PM EST Appointment [address] [address] Rell Villa MD [address] [place] [address] Orthopedics Sports [facility], [place] [address] 03/05/2025 11:30 AM EST Office Visit [facility] Orthopedics & Sports Medicine [address] [place] [address] [place] [address] Rell Villa MD [address] [place] [address] Orthopedics Sports [facility], [place] [address] 03/19/2025 Procedure Pass [facility] Admitting [facility] Virtual Department [address] [place] [address] 03/19/2025 8:30 AM EST Hospital Encounter [facility] Endoscopy Admitting Dept Virtual Department [address] [place] [address] Billy Kelly MD [address] [place] [address] maria 03/19/2025 8:30 AM EST - 03/19/2025 9:00 AM EST Surgery [facility] Endoscopy Admitting Dept Virtual Department 30 [place] [address] Billy Kelly MD 10 [facility] 2 [place] [address] maria COLONOSCOPY 04/10/2025 9:30 AM EST Office Visit [facility] 234 [place] [address] Aroldo Blas MD 234 [facility] 7 [place] [address] 07/17/2025 8:45 AM EDT Appointment [facility] - [address] [place] [address] Aroldo Blas MD 234 [facility] 7 [place] [address] [email or web address] Scheduled Procedures Name Priority Associated Diagnoses Date/Ti [...] documented as of this encounter Care Teams Regional Property Manager Relationship Specialty Start Date End Date Tonya Gomez MD [address] [place] [address] [place] [address] [email or web address] PCP - General 01/15/17 02/16/22 Aroldo Blas MD [address] [place] [address] 7 [place] [address] [email or web address] PCP - General Family Medicine 02/17/22 Tonya Gomez MD [address] [place] [address], [address] [place] [address] [email or web address] Insurance Assigned Provider 07/10/2007/08/22 Aroldo Blas MD [address] [place] [address], [address] [place] [address] [email or web address] Insurance Assigned Provider 07/07/23 documented as of this encounter Additional Source Comments The information contained in this document represents components of the legal health record. It is not the complete legal health record.[facility]
--- OUTSIDE RECORDS SUMMARY | 2025-01-22 19:01 | XMS_ITS | Encounter Summary ---
Author Organization [facility] Address [address] [facility] [address] [place] [address] Phone Care Team Providers Care Eeo Officer Name Role Phone Aroldo Blas MD Primary Care Provider [phone] Aroldo Blas MD Unavailable Encounter Details Date Type Department Care Team (Late st Contact Info) Description 07/19/2022 Procedure Pass [facility], [address] [address] Social History Tobacco Use Types Packs/Day Years [...] high school, GED, job training, learning the Micronesian language, technical skills, or developing parenting skills)? [...] (Latest Contact Info) Description 11/28/2024 Procedure Pass [address] [place] [address] 01/15/2025 Procedure Pass [address] [address] 01/15/2025 Procedure Pass [address] [address] 01/27/2025 11:30 AM EDT Office Visit [facility] [address] [place] [address] Rell Villa MD [address] [place] [address] [facility] [place] [address] Kaya Mahoney, PT 380 [place] [address] 02/24/2025 4:25 PM EST Appointment [address] [address] Rell Villa MD [address] [place] [address] [facility], [place], [place] [address] 02/24/2025 5:00 PM EST Appointment [address] [address] Rell Villa MD [address] [place] [address] Orthopedics & Sports [facility], [place] [address] 03/05/2025 11:30 AM EST Office Visit [facility] Orthopedics & Sports Medicine [address] [place] [address] [place] [address] Rell Villa MD [address] [place] [address] Orthopedics & Sports Medicine, [place] [address] 03/19/2025 Procedure Pass [facility] Endoscopy Admitting Dept Virtual Department [address] [place] [address] 03/19/2025 8:30 AM EST Hospital Encounter [facility] Endoscopy Admitting Dept Virtual Department [address] [place] [address] Billy Kelly MD [address] [place] [address] maria 03/19/2025 8:30 AM EST - 03/19/2025 9:00 AM EST Surgery [facility] Endoscopy Admitting Dept Virtual Department [address] [place] [address] Billy Kelly MD [address] [place] [address] maria COLONOSCOPY 04/10/2025 9:30 AM EST Office Visit [address] [address] Aroldo Blas MD [address] [place] [address], [address] [place], [place] [address] 07/17/2025 8:45 AM EDT Appointment [facility] - [address] [place] [address] Aroldo Blas MD [address] [place] [address], [address] [place] [address] [email or web address] Scheduled Procedures Name Priority Associated Diagnoses Date/Ti [...] Noted Time PHQ-2 Depression Total Score: 0 09/28/19 4:31 PM EDT documented as of this encounter Care Teams Eeo Officer Relationship Specialty Start Date End Date Aroldo Blas MD 234 [facility], [facility] 7 [place] [address] [email or web address] PCP - General Family Medicine 02/17/22 Aroldo Blas MD 234 [facility], [facility] 7 [place] [address] [email or web address] Insurance Assigned Provider 07/07/23 documented as of this encounter Additional Source Comments The information contained in this document represents components of the legal health record. It is not the complete legal health record.[facility]
--- OUTSIDE RECORDS SUMMARY | 2025-01-22 19:01 | XMS_ITS | Encounter Summary ---
Author Organization [facility] Address 399 [facility] [address] [place] [address] Phone Care Team Providers Care Funeral Home General Manager Name Role Phone Aroldo Blas MD Primary Care Provider [phone] Aroldo Blas MD Unavailable Encounter Details Date Type Department Care Team ([facility] st Contact Info) Description 08/23/2022 Ancillary Orders [facility] Orthopedics & Sports Medicine [address] [place] [address] [phone] Sivan Schmitz MD [address] [place] [address] Orthopedics & Sports Medicine, [facility] [place] [address] [email or web address] Social History Tobacco [...] Contact Info) Description 11/28/2024 Procedure Pass [address] [place] [address] 01/15/2025 Procedure Pass [address] [address] 01/15/2025 Procedure Pass [address] [address] 01/27/2025 11:30 AM EDT Office Visit [facility] Services 380 [place] [address] Rell Villa MD [address] [place] [address] Orthopedics & Sports [place], [place] [address] Kaya Mahoney, PT 380 [place] [address] [email or web address] 02/24/2025 4:25 PM EST Appointment [address] [address] Rell Villa MD [address] [place] [address] [facility] [place] [address] 02/24/2025 5:00 PM EST Appointment [facility], [facility] - [address] [address] Rell Villa MD [address] [place] [address] [facility] [place] [address] 03/05/2025 11:30 AM EST Office Visit [facility] Orthopedics [facility] Sports Medicine [address] [place] [address] [place] [address] Rell Villa MD [address] [place] [address] [facility], [place] [address] 03/19/2025 Procedure Pass [facility] Endoscopy Admitting Dept Virtual Department [address] [place] [address] 03/19/2025 8:30 AM EST Hospital Encounter [facility] Endoscopy Admitting Dept Virtual Department [address] [place] [address] Billy Kelly MD [address] [place] [address] maria 03/19/2025 8:30 AM EST - 03/19/2025 9:00 AM EST Surgery [facility] Endoscopy Admitting Dept Virtual Department [address] [place] [address] Billy Kelly MD [address] [place] [address] maria COLONOSCOPY 04/10/2025 9:30 AM EST Office Visit [address] [address] Aroldo Blas MD [address] [place] [address], [address] [place], [place] [phone] 07/17/2025 8:45 AM EDT Appointment [address] [place] [address] Aroldo Blas MD 234 [facility], [address] [place] [address] Scheduled Procedures Name Priority Associated Diagnoses Date/Ti [...] documented as of this encounter Care Teams Funeral Home General Manager Relationship Specialty Start Date End Date Aroldo Blas MD [address] [place] [address], [address] [place] [address] PCP - General Family Medicine 02/17/22 Aroldo Blas MD [address] [place] [address], [address] [place] [id number] Insurance Assigned Provider 07/07/23 documented as of this encounter Additional Source Comments The information contained in this document represents components of the legal health record. It is not the complete legal health record.[facility]
--- OUTSIDE RECORDS SUMMARY | 2025-01-22 19:01 | XMS_ITS | Encounter Summary ---
Author Organization [facility] Address 399 [facility] [address] [place] [address] Phone Care Team Providers Care Chamfering Machine Operator Name Role Phone Tonya Gomez MD Primary Care Provider [phone] Tonya Gomez MD Unavailable Tonya Gomez MD Unavailable [phone] Tonya Gomez MD Unavailable [phone] Tonya Gomez MD Unavailable Aroldo Blas MD Primary Care Provider [phone] Aroldo Blas MD Unavailable Encounter Details Date Type Department Care Team (Late st Contact Info) Description 04/03/2017 Ancillary Orders [facility] 234 [place] [address] Tonya Gomez MD 234 [facility], [address] [place] [address] [email or web address] Visit for screening mammogram Social History Tobacco Use Types Packs/Day Years Used Date Smoking Tobacco: Never Smokeless Tobacco: Never Comments Unknown Sex and Gender Information Value Date Recorded Sex Assigned at Not on file Legal Sex Female 10:02 PM EDT Gender Identity Not on file Sexual Orientation Not on file documented as of this encounter Plan of Treatment Upcoming Encounters Date Type Department Care Team (Latest Contact Info) Description 11/28/2024 Procedure Pass [facility] - [address] [place] [address] 01/15/2025 Procedure Pass [address] [address] 01/15/2025 Procedure Pass [address] [address] 01/27/2025 11:30 AM EDT Office Visit [facility] [address] [place] [address] Rell Villa MD 4 [facility] Orthopedics & Sports [facility], [place] [address] [email or web address] Kaya Mahoney, PT [address] [place] [address] [email or web address] 02/24/2025 4:25 PM EST Appointment [address] [address] Rell Villa MD [address] [place] [address] Orthopedics & Sports [facility], [place] [address] [email or web address] 02/24/2025 5:00 PM EST Appointment [address] [address] Rell Villa MD [address] [place] [address] Orthopedics & Sports [facility], [place] [address] [email or web address] 03/05/2025 11:30 AM EST Office Visit [facility] Orthopedics & Sports Medicine [address] [place] [address] [place] [address] Rell Villa MD [address] [place] [address] Orthopedics & Sports [facility], [place] [address] 03/19/2025 Procedure Pass [facility] Endoscopy Admitting Dept Virtual Department [address] [place] [address] 03/19/2025 8:30 AM EST Hospital Encounter [facility] Endoscopy Admitting Dept Virtual Department 30 [place] [address] Billy Kelly MD [address] [address] maria 03/19/2025 8:30 AM EST - 03/19/2025 9:00 AM EST Surgery [facility] Endoscopy Admitting Dept Virtual Department 30 [place] [address] Billy Kelly MD [address] [address] maria COLONOSCOPY 04/10/2025 9:30 AM EST Office Visit [address] [address] Aroldo Blas MD [address] [place] [address], [address] [place] [address] 07/17/2025 8:45 AM EDT Appointment [facility] - [address] [place] [address] Aroldo Blas MD 234 [facility], [address] [place] [address] Scheduled Procedures Name Priority Associated Diagnoses Date/Ti me COLONOSCOPY Hx of colonic polyps Polyp of colon, unspecified part of colon, unspecified type 03/19/2025 8:30 AM EST ESOPHAGOGASTRODUODENOSCOPY Hx of colonic polyps Polyp of colon, unspecified part of colon, unspecified type 03/19/2025 8:30 AM EST documented as of this encounter Results * BI MAMMOGRAM SCREENING WITH TOMOSYNTHESIS WITH CAD (BILATERAL) (05/14/2017 8:13 AM EST) Anatomical Region Laterality Modality Breast Left, Breast Right, Breast Bilateral Bila teral Mammography 05/14/2017 9:29 AM EST Impressions 05/14/2017 9:35 AM EST No mammographic change indicative of malignancy. Routine screening is recommended. BI-RADS CATEGORY: 2 - Benign finding. DENSITY: There are scattered fibroglandular densities. POS - CDHMAMA Narrative 05/14/2017 9:35 AM EST FINDINGS: Bilateral full-field digital screening mammography is obtained and read in conjunction with computer-aided detection. 3-D tomosynthesis as well as 2-D C view imaging is also performed. Comparison includes the most recent exam from 05/08/2016 and as far back as 07/25/2010. Both implant and implant displaced views were performed. Breasts are composed of scattered fibroglandular tissue. Implants are intact. Stable bilateral nodularity. Vascular calcifications are present. No new suspicious mass, suspicious microcalcifications, architectural distortion, focal skin thickening, or new asymmetry is detected. Procedure Note Amber Esparza MD - 05/14/2017 FINDINGS: Bilateral full-field digital screening mammography is obtained and read inconjunction with computer-aided detection. 3-D tomosynthesis as well as2-D C view imaging is also performed. Comparison includes the most recentexam from 05/08/2016 and as far back as 07/25/2010. Both implant andimplant displaced views were performed. Breasts are composed of scattered fibroglandular tissue. Implants areintact. Stable bilateral nodularity. Vascular calcifications arepresent. No new suspicious mass, suspicious microcalcifications,architectural distortion, focal skin thickening, or new asymmetry isdetected. IMPRESSION: No mammographic change indicative of malignancy. Routine screening isrecommended. BI-RADS CATEGORY: 2 - Benign finding. DENSITY: There are scattered fibroglandular densities. POS - CDHMAMA Tonya Gomez MD IMG MG EXAMS Final Result documented in this encounter Visit Diagnoses Diagnosis Visit for screening mammogram Visit for screening mammogram Hx of colonic polyps Personal history of colonic polyps Polyp of colon, unspecified part of colon, unspecified type documented in this encounter Care Teams Chamfering Machine Operator Relationship Specialty Start Date End Date Tonya Gomez MD [address] [place] [address], [facility] 7 [place] [address] [email or web address] PCP - General 01/15/17 02/16/22 Aroldo Blas MD [address] [place] [address], [facility] 7 [place] [address] PCP - General Family Medicine 02/17/22 Tonya Gomez MD [address] [place] [address] 7 [place] [id number] Insurance Assigned Provider 06/30/1711/03/17 Tonya Gomez MD [address] [place] [address] 7 [place] [id number] Insurance Assigned Provider 08/03/18 Tonya Gomez MD [address] [place] [address], [facility] 7 [place] [id number] Insurance Assigned Provider 07/09/1911/06/19 Tonya Gomez MD [address] [place] [address], [facility] 7 [place] [id number] Insurance Assigned Provider 07/10/2007/08/22 Aroldo Blas MD [address] [place] [address], [address] [place] [id number] Insurance Assigned Provider 07/07/23 documented as of this encounter Additional Source Comments The information contained in this document represents components of the legal health record. It is not the complete legal health record.[facility]
--- OUTSIDE RECORDS SUMMARY | 2025-01-22 19:01 | XMS_ITS | Encounter Summary ---
Author Organization [facility] Address 399 [facility] [address] [place] [address] Phone Care Team Providers Care Security Compliance Specialist Name Role Phone Aroldo Blas MD Primary Care Provider [phone] Aroldo Blas MD Unavailable Encounter Details Date Type Department Care Team ([facility] st Contact Info) Description 08/23/2022 Ancillary Orders [address] [address] Sivan Schmitz MD [address] [place] [address] Orthopedics & Sports Medicine, [facility] [place] [address] [email or web address] Left hip pain Social History Tobacco Use Types Packs/Day [...] (Latest Contact Info) Description 11/28/2024 Procedure Pass [address] [place] [address] 01/15/2025 Procedure Pass [address] [address] 01/15/2025 Procedure Pass [address] [address] 01/27/2025 11:30 AM EDT Office Visit [facility] Services [address] [place] [address] Rell Villa MD [address] [place] [address] Orthopedics & Sports [facility] [address] Kaya Mahoney, PT 380 [place] [address] [email or web address] 02/24/2025 4:25 PM EST Appointment [address] [address] Rell Villa MD [address] [place] [address] Orthopedics Sports [facility] [address] [email or web address] 02/24/2025 5:00 PM EST Appointment [facility], [facility] - [address] [address] Rell Villa MD [address] [place] [address] Orthopedics & Sports [facility] [place], [place] [id number] 03/05/2025 11:30 AM EST Office Visit [facility] Orthopedics & Sports Medicine [address] [place] [address] [place] [address] Rell Vilal MD [address] [place] [address] Orthopedics Sports [facility], [place] [address] 03/19/2025 Procedure Pass [facility] Admitting [facility] Virtual Department [address] [place] [address] 03/19/2025 8:30 AM EST Hospital Encounter [facility] Virtual Department [address] [place] [address] Billy Kelly MD [address] [place] [address] maria 03/19/2025 8:30 AM EST - 03/19/2025 9:00 AM EST Surgery [facility]oscopy Admitting Dept Virtual Department [address] [place] [address] Billy Kelly MD [address] [place] [address] maria COLONOSCOPY 04/10/2025 9:30 AM EST Office Visit [facility] 234 [place] [address] Aroldo Blas MD 234 [facility], [address] [place], [place] [phone] [email or web address] 07/17/2025 8:45 AM EDT Appointment [address] [place] [address] Aroldo Blas MD 234 [facility] 7 [place] [address] [email or web address] Scheduled Procedures Name Priority Associated Diagnoses Date/Ti me COLONOSCOPY Hx of colonic polyps Polyp of colon, unspecified part of colon, unspecified type 03/19/2025 8:30 AM EST ESOPHAGOGASTRODUODENOSCOPY Hx of colonic polyps Polyp of colon, unspecified part of colon, unspecified type 03/19/2025 8:30 AM EST documented as of this encounter Visit Diagnoses Diagnosis Left hip pain Pain in joint, pelvic region and thigh Hx of colonic polyps Personal history of colonic polyps Polyp of colon, unspecified part of colon, unspecified type documented in this encounter Additional Health Concerns Assessment Noted Time PHQ-2 Depression Total Score: 2 01/26/20 21 9:30 AM EDT documented as of this encounter Care Teams Security Compliance Specialist Relationship Specialty Start Date End Date Aroldo Blas MD 234 [facility], [facility] [address] [place] [address] PCP - General Family Medicine 02/17/22 Aroldo Blas MD 234 [facility], [facility] 7 [place] [id number] Insurance Assigned Provider 07/07/23 documented as of this encounter Additional Source Comments The information contained in this document represents components of the legal health record. It is not the complete legal health record.[facility]
--- OUTSIDE RECORDS SUMMARY | 2025-01-22 19:01 | XMS_ITS | Encounter Summary ---
Author Organization [facility] Address 399 [facility] [address] [place] [address] Phone Care Team Providers Care College Scouting Coordinator Name Role Phone Tonya Gomez MD Primary Care Provider [phone] Tonya Gomez MD Unavailable [phone] Aroldo Blas MD Primary Care Provider [phone] Aroldo Blas MD Unavailable Encounter Details Date Type Department Care Team (Late st Contact Info) Description 05/17/2020 Procedure Pass [address] [place] [address] Social History Tobacco Use Types Packs/Day Years [...] (Latest Contact Info) Description 11/28/2024 Procedure Pass [address] [place] [address] 01/15/2025 Procedure Pass [address] [address] 01/15/2025 Procedure Pass [address] [address] 01/27/2025 11:30 AM EDT Office Visit [facility] Rehabilitation Services [address] [place] [address] Rell Villa MD 4 [facility] [place] [address] Kaya Mahoney, PT 380 [place] [address] 02/24/2025 4:25 PM EST Appointment [address] [address] Rell Villa MD [address] [place] [address] Orthopedics Sports [facility], [place] [address] 02/24/2025 5:00 PM EST Appointment [address] [address] Rell Villa MD [address] [place] [address] Orthopedics [facility], [place] [address] 03/05/2025 11:30 AM EST Office Visit [facility] Orthopedics & Sports Medicine [address] [place] [address] [place] [address] Rell Villa MD [address] [place] [address] Orthopedics Sports [facility], [place] [address] 03/19/2025 Procedure Pass [facility] Endoscopy Admitting Dept Virtual Department [address] [place] [address] 03/19/2025 8:30 AM EST Hospital Encounter [facility]oscopy Admitting [facility] Virtual Department [address] [place] [address] Billy Kelly MD [address] [place] [address] maria 03/19/2025 8:30 AM EST - 03/19/2025 9:00 AM EST Surgery [facility] Endoscopy Admitting Dept Virtual Department 30 [place] [address] Billy Kelly MD 10 [facility] 2 [place] [address] maria COLONOSCOPY 04/10/2025 9:30 AM EST Office Visit [facility] 234 [place] [address] Aroldo Blas MD 234 [facility] 7 [place] [address] [email or web address] 07/17/2025 8:45 AM EDT Appointment [facility] - [address] [place] [address] Aroldo Blas MD 234 [facility] 7 [place] [address] [email or web address] Scheduled Procedures Name Priority Associated Diagnoses Date/Ti [...] documented as of this encounter Care Teams College Scouting Coordinator Relationship Specialty Start Date End Date Tonya Gomez MD [address] [place] [address] 7 [place] [address] [email or web address] PCP - General 01/15/17 02/16/22 Aroldo Blas MD [address] [place] [address] 7 [place] [address] [email or web address] PCP - General Family Medicine 02/17/22 Tonya Gomez MD [address] [place] [address], [address] [place] [address] [email or web address] Insurance Assigned Provider 07/10/2007/08/22 Aroldo Blas MD [address] [place] [address], [address] [place] [id number] Insurance Assigned Provider 07/07/23 documented as of this encounter Additional Source Comments The information contained in this document represents components of the legal health record. It is not the complete legal health record.[facility]
--- OUTSIDE RECORDS SUMMARY | 2025-01-22 19:02 | XMS_ITS | Encounter Summary ---
Author Organization [facility] Address 399 [facility] [address] [place] [address] Phone Care Team Providers Care Rest Room Attendant Name Role Phone Tonya Gomez MD Primary Care Provider Tonya Gomez MD Unavailable [phone] Tonya Gomez MD Unavailable [phone] Tonya Gomez MD Unavailable [phone] Aroldo Blas MD Primary Care Provider [phone] Aroldo Blas MD Unavailable Encounter Details Date Type Department Care Team (Late st Contact Info) Description 03/28/2019 Ancillary Orders [facility] 234 [place] [address] Tonya Gomez MD [address] [place] [address] 7 [place] [address] [email or web address] Breast screening Social History Tobacco Use Types Packs/Day Years [...] (Latest Contact Info) Description 11/28/2024 Procedure Pass [facility] - [address] [place] [address] 01/15/2025 Procedure Pass [address] [place] [address] 01/15/2025 Procedure Pass [address] [address] 01/27/2025 11:30 AM EDT Office Visit [facility] Rehabilitation Services 380 [place] [address] Rell Villa MD 4 [facility] Orthopedics & Sports [facility], [place] [address] Kaya Mahoney, PT 380 [place] [address] 02/24/2025 4:25 PM EST Appointment [address] [address] Rell Villa MD [address] [place] [address] Orthopedics Sports [facility], [place] [address] 02/24/2025 5:00 PM EST Appointment [address] [address] Rell Villa MD [address] [place] [address] Orthopedics Sports [facility], [place] [address] 03/05/2025 11:30 AM EST Office Visit [facility] Orthopedics & Sports Medicine [address] [place] [address] [place] [address] Rell Villa MD [address] [place] [address] Orthopedics & Sports [facility], [place] [address] 03/19/2025 Procedure Pass [facility] Admitting [facility] Virtual Department [address] [place] [address] 03/19/2025 8:30 AM EST Hospital Encounter [facility] Endoscopy Admitting Dept Virtual Department 30 [place] [address] Billy Kelly MD [address] [address] maria 03/19/2025 8:30 AM EST - 03/19/2025 9:00 AM EST Surgery [facility] Endoscopy Admitting Dept Virtual Department 30 [place] [address] Billy Kelly MD [address] [address] maria COLONOSCOPY 04/10/2025 9:30 AM EST Office Visit [address] [address] Aroldo Blas MD 234 [facility], [facility] 7 [place] [address] 07/17/2025 8:45 AM EDT Appointment [facility] - [address] [place] [address] Aroldo Blas MD 234 [facility], [address] [place] [address] [email or web address] Scheduled Procedures Name Priority Associated Diagnoses Date/Ti al COLONOSCOPY Hx of colonic polyps Polyp of colon, unspecified part of colon, unspecified type 03/19/2025 8:30 AM EST ESOPHAGOGASTRODUODENOSCOPY Hx of colonic polyps Polyp of colon, unspecified part of colon, unspecified type 03/19/2025 8:30 AM EST documented as of this encounter Visit Diagnoses Diagnosis Breast screening Breast screening, unspecified Hx of colonic polyps Personal history of colonic polyps Polyp of colon, unspecified part of colon, unspecified type documented in this encounter Additional Health Concerns Assessment Noted Time PHQ-2 Depression Total Score: 0 10/03/19 19 1:35 PM EDT documented as of this encounter Care Teams Rest Room Attendant Relationship Specialty Start Date End Date Tonya Gomez MD [address] [place] [address], [facility] 7 [place] [address] PCP - General 01/15/17 02/16/22 Aroldo Blas MD [address] [place] [address], [facility] 7 [place] [address] PCP - General Family Medicine 02/17/22 Tonya Gomez MD [address] [place] [address] 7 [place] [phone] Insurance Assigned Provider 08/03/18 Tonya Gomez MD [address] [place] [address] 7 [place] [id number] Insurance Assigned Provider 07/09/1911/06/19 Tonya Gomez MD [address] [place] [address] 7 [place] [id number] Insurance Assigned Provider 07/10/2007/08/22 Aroldo Blas MD [address] [place] [address] 7 [place] [address] Insurance Assigned Provider 07/07/23 documented as of this encounter Additional Source Comments The information contained in this document represents components of the legal health record. It is not the complete legal health record.[facility]
--- OUTSIDE RECORDS SUMMARY | 2025-01-22 19:02 | XMS_ITS | Encounter Summary ---
Author Organization [facility] Address 399 [facility] [address] [place] [address] Phone Care Team Providers Care Patient Navigator Name Role Phone Tonya Gomez MD Primary Care Provider [phone] Tonya Gomez MD Unavailable [phone] Tonya Gomez MD Unavailable [phone] Tonya Gomez MD Unavailable [phone] Aroldo Blas MD Primary Care Provider [phone] Aroldo Blas MD Unavailable Encounter Details Date Type Department Care Team (Late st Contact Info) Description 03/14/2018 Ancillary Orders [facility] 234 [place] [address] Tonya Gomez MD [address] [place] [address] 7 [place] [address] [email or web address] Breast screening Social History Tobacco [...] (Latest Contact Info) Description 11/28/2024 Procedure Pass [facility] - [address] [place] [address] 01/15/2025 Procedure Pass [address] [place] [address] 01/15/2025 Procedure Pass [address] [address] 01/27/2025 11:30 AM EDT Office Visit [facility] Rehabilitation Services 380 [place] [address] Rell Villa MD 4 [facility] Orthopedics & Sports [facility], [place] [address] Kaya Mahoney, PT 380 [place] [address] 02/24/2025 4:25 PM EST Appointment [address] [address] Rell Villa MD [address] [place] [address] Orthopedics Sports [facility], [place] [address] 02/24/2025 5:00 PM EST Appointment [address] [address] Rell Villa MD [address] [place] [address] Orthopedics Sports [facility], [place] [address] 03/05/2025 11:30 AM EST Office Visit [facility] Orthopedics & Sports Medicine [address] [place] [address] [place] [address] Rell Villa MD [address] [place] [address] Orthopedics & Sports [facility], [place] [address] 03/19/2025 Procedure Pass [facility] Admitting Dept Virtual Department [address] [place] [address] 03/19/2025 8:30 AM EST Hospital Encounter [facility] Endoscopy Admitting Dept Virtual Department 30 [place] [address] Billy Kelly MD 10 [facility] 2 [place] [address] maria 03/19/2025 8:30 AM EST - 03/19/2025 9:00 AM EST Surgery [facility] Endoscopy Admitting Dept Virtual Department 30 [place] [address] Billy Kelly MD [address] [address] maria COLONOSCOPY 04/10/2025 9:30 AM EST Office Visit [address] [address] Aroldo Blas MD 234 [facility], [address] [place] [address] 07/17/2025 8:45 AM EDT Appointment [facility] - [address] [place] [address] Aroldo Blas MD 234 [facility], [address] [place] [address] Scheduled Procedures Name Priority Associated Diagnoses Date/Ti pa COLONOSCOPY Hx of colonic polyps Polyp of colon, unspecified part of colon, unspecified type 03/19/2025 8:30 AM EST ESOPHAGOGASTRODUODENOSCOPY Hx of colonic polyps Polyp of colon, unspecified part of colon, unspecified type 03/19/2025 8:30 AM EST documented as of this encounter Results * BI MAMMOGRAM SCREENING WITH TOMOSYNTHESIS WITH CAD (BILATERAL) (05/20/2018 7:34 AM EST) Anatomical Region Laterality Modality Breast Left, Breast Right, Breast Bilateral Bila teral Mammography 05/20/2018 8:02 AM EST Impressions 05/20/2018 8:10 AM EST BILATERAL BREASTS: Benign, no evidence of malignancy. Normal interval follow-up is recommended in 12 months. Bi-RADS: BI-RADS CATEGORY: 2 - Benign finding. DENSITY: There are scattered fibroglandular densities. POS - CDHMAMA Narrative 05/20/2018 8:10 AM EST STUDY: Bilateral screening mammography with tomosynthesis and CAD TECHNIQUE: Bilateral full-field digital screening mammography is obtained and read in conjunction with computer-aided detection. Tomosynthesis as well as 2-D C view imaging were obtained. Images with implants and displaced implant views were obtained. COMPARISON: Comparison made to multiple prior, most recent May 14, 2017, and most remote July 19, 2009. BREAST COMPOSITION: There are scattered areas of fibroglandular density BILATERAL BREASTS: Bilateral retroglandular saline implants. No significant masses, calcifications or other abnormalities are seen. Procedure Note Delio Quinonez MD - 05/20/2018 STUDY: Bilateral screening mammography with tomosynthesis and CAD TECHNIQUE: Bilateral full-field digital screening mammography is obtainedand read in conjunction with computer-aided detection. Tomosynthesis aswell as 2-D C view imaging were obtained. Images with implants anddisplaced implant views were obtained. COMPARISON: Comparison made to multiple prior, most recent May, and most remote July 19, 2009. BREAST COMPOSITION: There are scattered areas of fibroglandulardensity BILATERAL BREASTS: Bilateral retroglandular saline implants. Nosignificant masses, calcifications or other abnormalities are seen. IMPRESSION: BILATERAL BREASTS: Benign, no evidence of malignancy. Normal intervalfollow-up is recommended in 12 months. Bi-RADS: BI-RADS CATEGORY: 2 - Benign finding. DENSITY: There are scattered fibroglandular densities. POS - CDHMAMA Tonya Gomez MD IMG MG EXAMS Final Result documented in this encounter Visit Diagnoses Diagnosis Breast screening Breast screening, unspecified Breast screening Breast screening, unspecified Hx of colonic polyps Personal history of colonic polyps Polyp of colon, unspecified part of colon, unspecified type documented in this encounter Additional Health Concerns Assessment Noted Time PHQ-2 Depression Total Score: 0 09/27/19 18 9:13 AM EDT documented as of this encounter Care Teams Patient Navigator Relationship Specialty Start Date End Date Tonya Gomez MD [address] [place] [address], [facility] 7 [place] [address] [email or web address] PCP - General 01/15/17 02/16/22 Aroldo Blas MD [address] [place] [address] 7 [place] [address] [email or web address] PCP - General Family Medicine 02/17/22 Tonya Gomez MD [address] [place] [address] 7 [place] [address] [email or web address] Insurance Assigned Provider 08/03/18 Tonya Gomez MD [address] [place] [address] 7 [place] [id number] [email or web address] Insurance Assigned Provider 07/09/1911/06/19 Tonya Gomez MD [address] [place] [address] 7 [place] [address] [email or web address] Insurance Assigned Provider 07/10/2007/08/22 Aroldo Blas MD [address] [place] [address] 7 [place] [address] [email or web address] Insurance Assigned Provider 07/07/23 documented as of this encounter Additional Source Comments The information contained in this document represents components of the legal health record. It is not the complete legal health record.[facility]
--- OUTSIDE RECORDS SUMMARY | 2025-01-22 19:02 | XMS_ITS | Encounter Summary ---
Author Organization [facility]erg[facility] With [facility] Address [address] [facility] [address] [place] [address] Phone Care Team Providers Care Global Program Manager Name Role Phone Aroldo Blas MD Primary Care Provider [phone] Aroldo Blas MD Unavailable Encounter Details Date Type Department Care Team (Latest Contact Info) Description 11/28/2024 Transcribe Orders Virtual Department [address] [place] [address] Aroldo Blas MD [address] [place] [address], [address] [place] [address] [email or web address] Breast screening (Primary Dx) Social History Tobacco Use Types Packs/Day Years [...] got money to buy more. Never True 07/24/2024 Within the past 6 months the food we bought just didn't last and we didn't have enough money to get more. Never True Residential Stability Answer Date Recor ded What is your housing situation today? I have vernon sing 07/24/2024 How many times have you move d in the past 12 months? Zero (I did not move) 07/24/2024 Paying for Meds Answer Date Recorded Do you have trouble paying for medicines? No 07/24/2024 Paying Utility Bills Answer Date Record ed Do you have trouble paying your heating or elect ricity bill? No 07/24/2024 Transportation Answer Date Recorded Has the lack of transportati on kept you from medical appointments or from getting medications? No 07/24/2024 Digital Access Answer Date Recorded No 07/24/2024 Yes 07/24/2024 Do you have reliable internet access at home? Ye s 07/24/2024 Do you have a device (e.g., phone, tablet, computer) with a working camera? Yes 07/24/2024 Intimate Partner Violence Answer Date R ecorded Are you denied basic needs s uch as food, clothing, or medical care? No 07/24/2024 In the past 12 months have y ou been in a relationship with a person who hurts, threatens, or tries to control you? No 07/24/2024 Are you denied basic needs s uch as food, clothing, or medical care? No 07/24/2024 In the past 12 months have y ou been in a relationship with a person who hurts, threatens, or tries to control you? No 07/24/2024 Comments No Sex and Gender Information Value Date Recorded Sex Assigned at Not on file Legal Sex Female 10:02 PM EDT Gender Identity Not on file Sexual Orientation Not on file documented as of this encounter Plan of Treatment Upcoming Encounters Date Type Department Care Team (Latest Contact Info) Description 11/28/2024 Procedure Pass [address] [place] [address] 01/15/2025 Procedure Pass [address] [address] 01/15/2025 Procedure Pass [address] [address] 01/27/2025 11:30 AM EDT Office Visit [facility] [address] [place] [address] Rell Villa MD 4 [facility], [place] [address] [email or web address] Kaya Mahoney, PT [address] [place] [address] 02/24/2025 4:25 PM EST Appointment [address] [address] Rell Villa MD [address] [place] [address] Orthopedics Sports [facility], [place] [address] [email or web address] 02/24/2025 5:00 PM EST Appointment [address] [address] Rell Villa MD [address] [place] [address] [facility], [place] [address] [email or web address] 03/05/2025 11:30 AM EST Office Visit [facility] [address] [place] [address] [place] [address] Rell Villa MD [address] [place] [address] Orthoped[facility] [place] [address] [email or web address] 03/19/2025 Procedure Pass [facility] Virtual Department [address] [place] [id number] 03/19/2025 8:30 AM EST Hospital Encounter [facility] Virtual Department [address] [place] [address] Billy Kelly MD [address] [place] [address] [id number] maria 03/19/2025 8:30 AM EST - 03/19/2025 9:00 AM EST Surgery [facility] Virtual Department [address] [place] [address] Billy Kelly MD [address] [address] maria [email or web address] COLONOSCOPY 04/10/2025 9:30 AM EST Office Visit [facility] [address] [place] [address] Aroldo Blas MD 234 [facility] [address] [place] [address] [email or web address] 07/17/2025 8:45 AM EDT Appointment [address] [place] [address] Aroldo Blas MD 234 [facility] 7 [place] [address] [email or web address] Scheduled Orders Name Type Priority Associated Diagnoses Orde r Schedule Mammogram Screening (Bilateral) Imaging Routine Breast screening Expected: 12/29/2024, Expires: 11/28/2025 Scheduled Procedures Name Priority Associated Diagnoses Date/Ti me COLONOSCOPY Hx of colonic polyps Polyp of colon, unspecified part of colon, unspecified type 03/19/2025 8:30 AM EST ESOPHAGOGASTRODUODENOSCOPY Hx of colonic polyps Polyp of colon, unspecified part of colon, unspecified type 03/19/2025 8:30 AM EST documented as of this encounter Visit Diagnoses Diagnosis Breast screening- Primary Breast screening, unspecified Hx of colonic polyps Personal history of colonic polyps Polyp of colon, unspecified part of colon, unspecified type documented in this encounter Additional Health Concerns Assessment Noted Time PHQ-2 Depression Total Score: 0 09/28/19 24 4:31 PM EDT documented as of this encounter Care Teams Global Program Manager Relationship Specialty Start Date End Date Aroldo Blas MD [address] [place] [address] [address] [place] [address] [email or web address] PCP - General Family Medicine 02/17/22 Aroldo Blas MD [address] [facility] [address] [place] [address] [email or web address] Insurance Assigned Provider 07/07/23 documented as of this encounter Additional Source Comments The information contained in this document represents components of the legal health record. It is not the complete legal health record.[facility]
--- OUTSIDE RECORDS SUMMARY | 2025-01-22 19:02 | XMS_ITS | Clinical Summary ---
Author Organization [facility] Address [address] [place] [id number] Phone Care Team Providers Care Compliance And Control Analyst Name Role Phone Aroldo Blas MD Primary Care Provider [phone] Aroldo Blas MD Unavailable Allergies Active Allergy Reactions Criticality Noted Date Comments Atorvastatin 12/18/2016 Other reaction(s): muscle pain Medications MULTIVIT WITH MINERALS/LUTEIN (MULTIVITAMIN 50 PLUS ORAL) Active cholecalciferol (VIT D3) 400 unit/mL oral drops Active fluticasone propionate (FLOVENT HFA) 220 mcg/actuation inhalerIndication s:Acute cough Inhale 1 puff into the lungs 2 (two) times a day. 12 g 1 02/08/20 22 Active meclizine (ANTIVERT) 25 mg tabletIndications :Vertigo Take 1 tablet (25 mg total) by mouth 3 (three) times a day as needed for dizziness. 90 tablet 2 10/21/19 23 Active ammonium lactate (AMLACTIN) 12 % cream 01/25/20 23 Active triamcinolone acetonide 0.1 % creamIndications: Psoriasis Apply topically 2 (two) times a day. Apply to rash over body but avoid face with this cream 80 g 2 06/29/19 24 Active tirzepatide, weight loss, (ZEPBOUND) 2.5 mg/0.5 mL subcutaneous penIndications:Se don binge-eating disorder,Obstruct mariella sleep apnea syndrome,Overweig ht Inject 0.5 mL (2.5 mg total) under the skin once a week. 2 mL 05/13/19 25 Active pravastatin (PRAVACHOL) 80 MG tabletIndications :Mixed hyperlipidemia Take 1 tablet by mouth once daily 90 tablet 3 05/22/19 25 Active lamoTRIgine (LAMICTAL) 100 MG IMMEDIATE release tabletIndications :Recurrent major depressive disorder, in partial remission Take 2 tablets by mouth twice daily 360 tablet 3 08/02/19 25 Active ciclopirox (PENLAC) 8 % solution APPLY SOLUTION TOPICALLY TO AFFECTED AREA ONCE DAILY for 8 Active terbinafine HCL (LAMISIL) 250 mg tablet Active GENTLE LAXATIVE, BISACODYL, 5 mg EC tablet TAKE 4 TABLETS BY MOUTH A ONE TIME DOSE DIRECTED 12/05/19 25 Active nitrofurantoin (MACROBID) 100 MG capsule TAKE 1 CAPSULE BY MOUTH TWICE DAILY FOR 7 DAYS WITH FOOD/MEAL 11/12/19 25 Active levothyroxine (SYNTHROID, LEVOTHROID) 75 MCG tabletIndications :Acquired hypothyroidism TAKE 1 TABLET BY MOUTH ONCE DAILY IN THE MORNING 90 tablet 3 01/09/20 25 Active meloxicam (MOBIC) 15 MG tabletIndications :Acute internal derangement of right knee,Primary osteoarthritis of right knee,Primary osteoarthritis of left hip,Primary osteoarthritis of right hip,Degeneration of intervertebral disc of lumbar region with discogenic back pain and lower extremity pain Take 1 tablet (15 mg total) by mouth daily. 30 tablet 2 01/16/20 25 Active levothyroxine (SYNTHROID, LEVOTHROID) 75 MCG tabletIndications :Acquired hypothyroidism take 1 tablet by mouth once daily in the morning 90 tablet 3 12/31/19 24 025 Discontinued Active Problems Problem Noted Date Diagnosed Date Essential hypertension 04/04/2024 Overweight 10/17/2023 Assessment & Plan (05/13/2024 2:28 PM EST): This is a patient with overweight and multiple weight related comorbidities. She has comorbid binge eating disorder. She has been tried on topiramate, Wellbutrin, metformin and Vyvanse without benefit. Her insurance previously denied Wegovy. I do think she would benefit from Zepbound for treatment of her overweight, sleep apnea and binge eating disorder. The patient has completed > 6 months of efforts focused on dietary and lifestyle changes and has been unsuccessful in reaching their weight loss goals. I have explained that this medication decreases appetite & food cravings and increases feeling of fullness. I have reviewed the following possible side effects: Nausea, vomiting, constipation, gastroparesis, SBO, pancreatitis, gallstones, suicidal thoughts, diabetic retinopathy, optic neuropathy, low blood sugar and in rat studies an increased risk of medullary thyroid cancer and MEN2. This medication is not recommended in and in patients with a personal or family history of medullary thyroid cancer or multiple endocrine neoplasia 2A or 2B. We also discussed health insurance inflicted barriers to obtaining GLP1RA and possible need for prior authorization & appeal Assessment & Plan (03/04/2024 2:12 PM EST): She cannot get a GLP-1 covered. She does not feel like she can afford paying for Zepbound vials [id number] and additionally she is squeamish about self injecting. She did not benefit from topiramate. She has binge eating frequently. I recommend she start metformin, based on her blood sugar trends she clearly has insulin resistance. I also want her to start Vyvanse for the binge eating. Follow-up with me in 8 weeks. Reviewed possible side effects of metformin including diarrhea, metabolic acidosis, low blood sugar Assessment & Plan (01/22/2024 4:53 PM EDT): I am concerned about possible memory related side effects on topiramate for her. Generally she seems a bit forgetful at baseline. Today she had a lot of difficulty remembering her medications but she states this is always been the case. She says she will monitor for increase in forgetfulness and I am going to see her back in 6 weeks to check on this as well. The plan for now is for her to titrate up first to topiramate 25 mg twice daily, then to 25 mg in a.m., 50 mg in p.m. We reviewed her diet, she needs to eat more protein and less carbs. She needs to start resistance training. Assessment & Plan (10/17/2023 2:10 PM EDT): Pt has overweight. Body fat % elevate. VF & BMR in normal range. With BMI > 27 and more than 1 OR see she is a candidate for medication treatment for weight loss however she has Medicare and they do not cover obesity medications, specifically GLP-1's. She is getting the phentermine covered however. She has significant issues with binge eating. I recommend she start topiramate and continue phentermine. I gave her dietary plan and discussed adding in resistance training. She will meet with her dietitian and see me back in 8 weeks Binge eating disorder 10/17/2023 Assessment & Plan (03/04/2024 2:12 PM EST): She is binge eating nightly. She did not benefit from topiramate. She has not noticed a benefit from Wellbutrin and is not interested in increasing that dose. I recommend trial of Vyvanse. She was previously on stimulant, thinks Adderall, for ADHD years ago and does not recall experiencing a benefit for binge eating Reviewed possible side effects of Vyvanse including fast pulse, elevated blood pressure, insomnia, anxiety Assessment & Plan (10/17/2023 2:12 PM EDT): She will start topiramate at 25 mg and we will titrate up as tolerated. I have explained that this medication works by suppressing appetite, working on the reward center of the brain, and may stimulate lipolysis in some patients. I have reviewed the following possible side effects: Taste alteration, paresthesias, memory loss, constipation, somnolence, kidney stones. She will continue phentermine as the 2 medications boost each others effects. If she does not notice benefit on this consider Vyvanse Abdominal distention 04/04/2023 Assessment & Plan (04/04/2023 10:40 PM EST): Patient is complaining of abdominal distention and urinary frequency. I would like to order CT scan of the abdomen to figure out what may be causing her symptoms. She denies any blood with urine or stool. Postmenopausal bleeding 03/16/2023 Overview (03/16/2023): Status post hysterectomy with removal of cervix as well Assessment & Plan (03/16/2023 5:32 PM EST): Due to small vaginal lesion near the introitus of the at 11:00 that was biopsied Vaginal lesion 03/16/2023 Assessment & Plan (03/16/2023 5:32 PM EST): Suspect this is benign just given that she has had this bleeding for well over a year, biopsy sent. If benign and still bleeding she can return for some silver nitrate treatment or TCA Recent weight gain 12/04/2022 Assessment & Plan (12/04/2022 10:42 PM EDT): Patient is taking the phentermine 15 mg capsule and tolerating it well. She has not had weight gain since her last visit and has lost 2 pounds as per our scale. I will increase the dose of phentermine to 30 mg and we will recheck the patient in 3 months. Vertigo 12/04/2022 Assessment & Plan (12/04/2022 10:43 PM EDT): Patient does experience bouts of vertigo since her last visit here. I will send in a prescription for meclizine 25 mg tablets the patient can take as needed if she experiences vertigo again. Right foot pain 12/04/2022 Assessment & Plan (12/04/2022 10:44 PM EDT): Patient has been complaining of right foot pain in addition to her chronic left hip pain. I asked patient if she wanted to see a steam table attendant but she would prefer to do physical therapy for the foot pain before trying to see another specialist. I have placed a referral for patient to follow-up with [facility] physical therapy that she is already seeing. The referral was for the right foot pain. Left hip pain 07/20/2022 Assessment & Plan (2022 1:07 AM EDT): Patient is complaining of chronic left hip pain. She is interested in starting physical therapy to deal with this. I will place a referral for patient so that she may be able to do physical therapy as she desires. Assessment & Plan (07/20/2022 2:53 PM EDT): Cindy has ongoing left hip pain. I ordered image study-I will do x-ray of the hip to review the extent of arthritis. I put a referral into physical therapy and also put a referral into orthopedics for consult. I given guidance regarding additional symptomatic management and to call if things get worse or if there are any other issues or concerns. She understands and agrees. Lumbar spondylosis 09/08/2020 Obstructive sleep apnea syndrome 04/08/2018 Overview (04/08/2018): Diagnosed 2018 Atrophic vaginitis 09/26/2017 Attention deficit disorder (ADD) in adult 2017 Acquired hypothyroidism 02/17/2017 Assessment & Plan (2022 1:05 AM EDT): Patient is due to have her thyroid levels rechecked at this time. I have ordered a TSH for patient to get drawn. Colon polyp 02/17/2017 Overview (09/26/2017): Hx adenomatous polyp(s). Colonoscopy due 2020 Depression 02/17/2017 Assessment & Plan (2022 1:07 AM EDT): Patient is feeling more depressed due to her recent weight gain. She would like to deal with the weight gain which she believes will also make her feel better. She is taking Lamictal for her mood and I have started her on phentermine for weight loss. We will recheck with her in 6 weeks to see how she is feeling. 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 She is due to have her lipid panel rechecked. I have ordered a blood test to be done before her next appointment. Insomnia 02/17/2017 Back pain Psoriasis Overview (08/23/2020): mild Assessment & Plan (06/29/2023 9:59 AM EDT): Patient has a rash over her right cubital fossa and posterior left forearm consistent with psoriasis. I will prescribe her steroid cream to help keep it under control. Patient describes the rash as itchy and warm to touch. I will prescribe triamcinolone cream for patient to use for this rash. She has been using alcohol at home with limited success. Resolved Problems Problem Noted Date Diagnosed Date Resolved Date BMI 30.0-30.9,adult 02/06/2023 10/17/19 Assessment & Plan (06/29/2023 9:51 AM EDT): Patient has been tried on phentermine, naltrexone and bupropion in the past few months without any relief or success. I tried to prescribe semaglutide for patient but her insurance does not cover it and it would be $1000 a month [id number] for her. She did make an appointment with the weight loss clinic and [facility] but her appointment is not till September. In the meantime, I would like to prescribe her phentermine again to try and maintain her weight as she has gained 8 pounds since the last visit. Assessment & Plan (04/04/2023 10:39 PM EST): Patient has been tried on phentermine, naltrexone and bupropion in the past few months without any relief or success. She continues to maintain her weight but denies any side effects from these medications. I would like her on semaglutide which has been successful for some of my other patients. I discussed the risks and benefits with the patient and she is willing to try this medication to see if it works any better at getting her weight under control. I will send a prescription to her pharmacy and check back in with her in 4 weeks to see how she is doing. Assessment & Plan (02/06/2023 4:25 PM EST): Patient did not have any success with phentermine and would like to try different weight loss regimen. I have called in a prescription for naltrexone and bupropion which together can be used to help lose weight. Her insurance will not cover Contrave but I am hoping that by sending in the individual components of the medication, patient can get the same results as she would with the combination pill. We will check the patient in the office in 6 weeks to see if the medication is helping her lose weight. Vaginal bleeding 12/04/2022 03/16/2023 Assessment & Plan (12/04/2022 10:42 PM EDT): Patient has had breakthrough vaginal bleeding and would like to follow-up with [facility] to figure out why. I have placed a referral for patient to follow-up with [facility] gynecology. Trochanteric bursitis of left hip 09/08/2020 02/03/2022 Overactive child 02/17/2017 05/28/2017 Encounters Date Type Department Care Team Description 01/15/2025 11:30 AM EDT Office Visit [facility] Orthopedics & Sports Medicine [address] [place] [address] [place] [address] Rell Villa MD Acute internal derangement of right knee (Primary Dx); Primary osteoarthritis of right knee; Primary osteoarthritis of left hip; Primary osteoarthritis of right hip; Degeneration of intervertebral disc of lumbar region with discogenic back pain and lower extremity pain 01/15/2025 Telephone [facility] -[facility] TEAM [address] [place] [address] Aroldo Blas MD Care Coordination ([facility] Virtual AWV Outreach/) 01/09/2025 Nurse Triage [address] [address] Aroldo Blas MD Recurrent UTI 01/08/2025 Refill [facility] [address] [place] [address] Maria Isabel Macedo CNP Medication Refill 01/06/2025 1:30 PM EDT Office Visit [facility] Orthopedics & Sports Medicine [address] [place] [id number] Rell Villa MD Pain (Primary Dx); Primary osteoarthritis of right knee; Acute internal derangement of right knee; Primary osteoarthritis of left hip; Primary osteoarthritis of right hip; Degeneration of intervertebral disc of lumbar region with discogenic back pain and lower extremity pain 01/06/2025 1:21 PM EDT - 01/06/2025 11:59 PM EDT Hospital Encounter [facility] [address] [place] [address] Rell Villa MD Discharge Disposition: Home or Self Care 01/06/2025 1:20 PM EDT Hospital Encounter [address] [address] Rell Villa MD Discharge Disposition: Home or Self Care 12/30/2024 2:00 PM EDT Office Visit [facility] [address] [place] [address] Rell Villa MD Sharkey, Linda Ann, PT Chronic pain of both knees (Primary Dx) 12/23/2024 4:15 PM EDT Office Visit [address] [address] Rell Villa MD Sharkey, Linda Ann, PT Chronic pain of both knees (Primary Dx) 12/16/2024 4:15 PM EDT Office Visit [address] [address] Rell Villa MD Sharkey, Linda Ann, PT Chronic pain of both knees (Primary Dx) 12/09/2024 2:00 PM EDT Office Visit [address] [address] Rell Villa MD Sharkey, Linda Ann, PT Chronic pain of both knees (Primary Dx) 12/09/2024 Plan of Care Documentation [facility] [address] [place] [address] 11/28/2024 Telephone [facility] [address] [place] [address] Aroldo Blas MD Results (Lab ) 11/28/2024 Transcribe Orders Virtual Department [address] [place] [address] Aroldo Blas MD Breast screening (Primary Dx) 11/17/2024 Orders Only [facility] [address] [place] [address] Unknown, MD Dolores 11/04/2024 1:45 PM EDT Office Visit [facility] Orthopedics & Sports Medicine [address] [place] [address] Rell Villa MD Primary osteoarthritis of right knee (Primary Dx); Acute internal derangement of right knee; Primary osteoarthritis of left hip; Primary osteoarthritis of right hip; Degeneration of intervertebral disc of lumbar region with discogenic back pain and lower extremity pain; Left sided sciatica from Last 3 Months Immunizations Immunization Administration Dates Next Due COVID-19 (Pre-01/22) Pfizer Vaccine, mRNA, PF 09/26/2021 COVID-19, Unspecified Formulation 07/10/2020 INFLUENZA, SPLIT VIRUS, TRIV ALENT W/ PRESERVATIVE IM 12/27/2010 Influenza High-Dose Quadriva lent Preservative Free IM 02/06/2023,02/03/2022,01/02/2020 Influenza High-Dose Trivalen t Preservative Free IM 12/13/2024,01/04/2024,12/01/2018,12/26,12/18/2016,12/21/2014 Influenza Quadrivalent Prese rvative Free IM 02/09/2016 Influenza trivalent preserva tive free intradermal 01/08/2014,05/12/2013,03/25/2012 Influenza, whole 03/25/2012,02/28/2010 Pneumococcal conjugate PCV13 02/15/2015 Pneumococcal conjugate PCV21 12/15/2024 Pneumococcal polysaccharide PPSV23 02/09/2016 RSV Vaccine (monovalent, adjuvanted) 12/15/2024 Td (adult) 5 Lf Tetanus Toxo id, PF, Adsorbed 02/28/2010,04/10/2000 Td (adult),2 Lf Tetanus Toxo id, PF, Adsorbed 02/06/2023 Tdap 03/25/2012 Zoster live 03/31/2011 Zoster recombinant 03/09/2019,12/01/2018 Family History Medical History Relation Comments Breast cancer Mother Cancer Mother Breast cancer Paternal Aunt Relation Status Comments Mother Paternal Aunt Social History Tobacco Use Types Packs/Day Years Used Date Smoking Tobacco: Never Smokeless Tobacco: Never Tobacco Cessation:Counseling Given: Not Answered Alcohol Use Standard Drinks/Week Comments Yes 0 [...] on file Sexual Orientation Not on file Last Filed Vital Signs Vital Sign Reading Time Taken Comments Blood Pressure 130/72 10/10/2024 9:22 AM EDT Pulse 59 10/10/2024 8:22 AM EDT Temperature 37 C (98.6 F) 10/10/2024 8:22 AM EDT Respiratory Rate 16 07/24/2024 2:54 PM EDT Oxygen Saturation 98% 10/10/2024 8:22 AM EDT Inhaled Oxygen Concentration - - Weight 77.6 kg (171 lb) 01/15/2025 11:35 AM EDT Height 162.6 cm (5' 4 ) 08/15/2024 12:58 PM EDT Body Mass Index 29.35 08/15/2024 12:58 PM EDT Plan of Treatment Upcoming Encounters Date Type Department Care Team (Latest Contact Info) Description 11/28/2024 Procedure Pass [address] [place] [address] 01/15/2025 Procedure Pass [address] [address] 01/15/2025 Procedure Pass [address] [address] 01/27/2025 11:30 AM EDT Office Visit [facility] [address] [place] [address] Rell Villa MD [address] [place] [address] [facility], [place] [address] Kaya Mahoney, PT [address] [place] [address] 02/24/2025 4:25 PM EST Appointment [address] [address] Rell Villa MD [address] [place] [address] [facility] [place] [address] 02/24/2025 5:00 PM EST Appointment [facility], [facility] - [address] [address] Rell Villa MD [address] [place] [address] [facility] [place] [address] 03/05/2025 11:30 AM EST Office Visit [facility] Orthopedics & Sports Medicine [address] [place] [address] [place] [address] Rell Villa MD [address] [place] [address] [facility], [place] [address] 03/19/2025 Procedure Pass [facility] Admitting Dept Virtual Department [address] [place] [id number] 03/19/2025 8:30 AM EST Hospital Encounter [facility] Admitting [facility] Virtual Department [address] [place] [address] Mina Kelly MD [address] [place] [phone] maria 03/19/2025 8:30 AM EST - 03/19/2025 9:00 AM EST Surgery [facility] Endoscopy Admitting Dept Virtual Department [address] [place] [address] Mina Kelly MD [address] [place] [phone] maria COLONOSCOPY 04/10/2025 9:30 AM EST Office Visit [address] [address] Aroldo Blas MD [address] [place] [address], [address] [place], [place] [id number] 07/17/2025 8:45 AM EDT Appointment [facility] [place], [place] [address] Aroldo Blas MD [address] [place] [address], [address] [place] [address] Scheduled Procedures Name Priority Associated Diagnoses Date/Ti me COLONOSCOPY Hx of colonic polyps Polyp of colon, unspecified part of colon, unspecified type 03/19/2025 8:30 AM EST ESOPHAGOGASTRODUODENOSCOPY Hx of colonic polyps Polyp of colon, unspecified part of colon, unspecified type 03/19/2025 8:30 AM EST Health Maintenance Due Date Last Done Comments COLOGUARD 1994 FOBT 1994 SIGMOIDOSCOPY 1994 VIRTUAL COLONOSCOPY 1994 FIT TEST 05/05/2024 05/05/2023 DEPRESSION SCREENING 09/27/2024 09/28/2023, 12/18/19 20 COLONOSCOPY 10/01/2024 10/02/2019, 12/10/2014 COLORECTAL CANCER SCREENING 10/01/2024 BLOOD PRESSURE 04/12/2025 10/10/2024 COVID-19 VACCINE ( season) 2025 12/13/2024, 02/10/2022, 09/26/2021, Additional history exists TSH LEVEL 10/10/2025 10/10/2024, 04/02, 10/12/2023, Additional history exists LIPID PANEL 10/10/2029 10/10/2024, 04/02, 09/29/2022, Additional history exists Adult Td,Tdap Booster 02/06/2033 02/06/2023 , 03/25/2012, 02/28/2010, Additional history exists OSTEOPOROSIS SCREENING INITIAL (ONE-TIME) Completed 05/08/2016 HEPATITIS C SCREENING Completed 06/14/2017, 018 ZOSTER VACCINES Completed 03/09/2019, 09/0 04/2018, 03/31/2011 SMOKING STATUS SCREENING (Once After 26 Yrs) Completed 11/04/2024 INFLUENZA VACCINE Completed 12/13/2024, , 02/06/2023, Additional history exists PNEUMOCOCCAL VACCINES (50+ years) Completed 12/15/2024, 02/09/2016, 02/15/2015 RSV VACCINE Completed 12/15/2024 HEPATITIS A VACCINES Aged Out No long er eligible based on patient's age to complete this topic HIB VACCINES Aged Out No longer eligi ble based on patient's age to complete this topic MENINGOCOCCAL VACCINES (ACWY) Aged Out No longer eligible based on patient's age to complete this topic MENINGOCOCCAL VACCINES (B) Aged Out N o longer eligible based on patient's age to complete this topic Medical Devices Not on file Procedures Procedure Name Priority Date/Time Associated Diagnosis Comments XR HIPS 2+ VW EA BILAT PLUS PELVIS Routine 01/06/2025 1:39 PM EDT Pain XR LUMBOSACRAL SPINE 2-3 VIEWS Routine 01/06/2025 1:38 PM EDT Pain OUTSIDE LAB Routine 11/11/2024 8:24 AM EDT LIPID PANEL Routine 10/10/2024 9:32 AM EDT Mixed hyperlipidemia TSH Routine 10/10/2024 9:32 AM EDT Acquired hypothyroidism HC BLOOD OCCULT FECAL HGB DETER IA QUAL FECES 1-3 Routine 05/05/2023 12:00 PM EST Screening for colon cancer ENDOSCOPY, COLON 10/02/2019 10:2 0 AM EDT HEPATITIS C ANTIBODY, QUALITATIVE Routine 06/14/2017 10:27 AM EDT Acquired hypothyroidism OUTSIDE BONE DENSITY SCREENING Routine 05/08/2016 from Last 3 Months or Most Recently Relevant to Health Maintenance Results * XR HIPS 2+ VW EA BILAT PLUS PELVIS (01/06/2025 1:39 PM EDT) Narrative SYSTEMGENERATED, DOCUMENTATION - 01/06/2025 1:39 PM EDT This image report has been auto-finalized and has not been read by a Radiologist. Interpretation has been included in the provider encounter note for this date of service. Rell Villa MD IMG XR PELVIS Final Result * XR LUMBOSACRAL SPINE 2-3 VIEWS (01/06/2025 1:38 PM EDT) Narrative SYSTEMGENERATED, DOCUMENTATION - 01/06/2025 1:39 PM EDT This image report has been auto-finalized and has not been read by a Radiologist. Interpretation has been included in the provider encounter note for this date of service. Rell Villa MD IMG XR SPINE Final Result * Outside Lab (11/11/2024 8:24 AM EDT) us Unknown Unknown LAB BLOOD ORDERABLES Final Re sult * TSH (10/10/2024 9:32 AM EDT) TSH 1.16 0.27 - 4.20 uIU/mL [facility] Blood 10/10/2024 9:32 AM EDT 10/10/2024 9:37 AM EDT Aroldo Blas MD LAB BLOOD ORDERABLES Final Resul t [address] [address] * (ABNORMAL) Lipid panel (10/10/2024 9:32 AM EDT) HDL 52 mg/dL [facility] Comment: Interpretation <40 mg/dL: Low HDL cholesterol (major risk factor for CHD) Greater than or equal to 60 mg/dL: High HDL cholesterol ( negative risk factor for CHD) HDL - cholesterol is affected by a number of factors, e.g. smoking, excerise, hormones, sex and age. CHOLESTEROL 155 0 - 240 mg/dL [facility] TRIGLYCERIDES 68 30 - 160 mg/dL [facility] LDL 89 50 - 129 mg/dL [facility] Comment: LDL levels in terms of risk for coronary heart disease: <100 mg/dL: Optimal 100-129 mg/dL: Near or above optimal 130-159 mg/dL: Borderline high 160-189 mg/dL: High >190 mg/dL: Very High CARDIAC RISK RATIO 3.0(L) 3.3 - 4.4 C [facility] Blood 10/10/2024 9:32 AM EDT 10/10/2024 9:37 AM EDT Aroldo Blas MD LAB BLOOD ORDERABLES Final Resul t [address] [address] * Fecal immunochemical test x1 (FIT) (05/05/2023 12:00 PM EST) Immuno Fecal Occult Negative Negative [facility] Stool (Stool) 05/05/2023 12: 00 PM EST 05/11/2023 4:29 PM EST Aroldo Blas MD BODY FLUIDS AND STOOLS ORDERABLE S Final Result Performing Organization Address [facility]/ZIP Co de Phone Number [address] [address] * ENDOSCOPY, COLON (10/02/2019 10:20 AM EDT) Narrative Transcriptions Mina Kelly MD - 10/02/2019 10:20 AM EDT Patient Name: Cindy Nevarez MD:: MINA KELLY MD Procedure Date: 10/02/2019 10:20 AM Date of : 1950 Age: 68 Admit Type: Outpatient Gender: Female Room: Endo 05 Referring MD: SINDY CAREY MD Exam Type: Colonoscopy Indications: Last colonoscopy: December 2014, Rectal bleeding, Personal history of colonic polyps Medications: Propofol per Anesthesia Procedure: Informed consent was obtained from the patient after discussion of the indications, limitations, alternatives, benefits, and risks of the procedure. Risks specifically discussed include but are not limited to medication reactions, missed lesions, bleeding, perforation, or the need for emergentsurgery. Throughout the procedure, the patient's bloodpressure, pulse, end-tidal CO2, and oxygen saturations were monitored continuously. The Olympus adult variable colonoscope [id number] #6was introduced through the anus and advanced to thececum, identified by appendiceal orifice and ileocecalvalve. The ileocecal valve, appendiceal orifice, and rectum were photographed. The colonoscopy was somewhat difficult due to multiple diverticula in the colonand a redundant colon. Successful completion of the procedure was aided by changing the patient to asupine position and applying abdominal pressure. Thepatient tolerated the procedure well. The quality of thebowel preparation was good. Complications: No immediate complications. Estimated blood loss:None. Findings: The digital rectal exam findings include decreased sphincter tone. Pertinent negatives include nopalpable rectal lesions. External hemorrhoids were found during perianalexam. The hemorrhoids were small. Retroflexion in the rectum was not easilyaccomplished but a careful foreward view was obtained. Multiple small and large-mouthed diverticula werefound in the sigmoid colon. There was evidence of diverticular spasm. Many medium-mouthed diverticula were found in the ascending colon. The colon (entire examined portion) wassignificantly redundant. The exam was otherwise without abnormality. Retroflexion in the right colon was performed. Impression: - Decreased sphincter tone found on digital rectalexam. - External hemorrhoids. - Moderate diverticulosis in the sigmoid colon.There was evidence of diverticular spasm. - Diverticulosis in the ascending colon. - Redundant colon. - The examination was otherwise normal. - No specimens collected. Recommendation: - Use fiber, for example Citrucel, Fibercon, Konsylor Metamucil. - Repeat colonoscopy in 5 years for surveillance. MINA KELLY MD 10/02/2019 11:01:58 AM This report has been signed electronically. Number of Addenda: 0 Note Initiated On: 10/02/2019 10:20 AM Procedure Code(s): --- Professional --- 37801, Colonoscopy, flexible; diagnostic, including collection of specimen(s) by brushing or washing, when performed (separateprocedure) --- Technical --- 38209, Colonoscopy, flexible; diagnostic, including collection of specimen(s) by brushing or washing, when performed (separateprocedure) Diagnosis Code(s): --- Professional --- K62.89, Other specified diseases of anus andrectum K64.4, Residual hemorrhoidal skin tags K62.5, Hemorrhage of anus and rectum Z86.010, Personal history of colonic polyps K57.30, Diverticulosis of large intestine without perforation or abscess without bleeding Q43.8, Other specified congenital malformations of intestine --- Technical --- K62.89, Other specified diseases of anus andrectum K64.4, Residual hemorrhoidal skin tags K62.5, Hemorrhage of anus and rectum Z86.010, Personal history of colonic polyps K57.30, Diverticulosis of large intestine without perforation or abscess without bleeding Q43.8, Other specified congenital malformations of intestine CPT copyright 2018 [employer]. All rights reserved. The codes documented in this report are preliminary and upon wax pattern assembler reviewmay be revised to meet current compliance requirements. Procedure Date: 10/02/2019 10:20:26 AM [address] [place] [address] us Sindy Carey MD GI PROCEDURE ORDERABLES Final Result * Hepatitis C antibody, qualitative (06/14/2017 10:27 AM EDT) HCV Negative Negative [facility] Comment: This is a screening test and should be confirmed with molecular testing Blood 06/14/2017 10:2 7 AM EDT 06/14/2017 12:39 PM EDT Sindy Carey MD LAB BLOOD ORDERABLES Final Re sult [facility] [address] [place] [address] * OUTSIDE BONE DENSITY SCREENING (05/08/2016) BONE DENSITY SCREENING - EXTERNAL normal Historical Provider HEALTH MAINTENANCE Final Result from Last 3 Months or Most Recently Relevant to Health Maintenance Insurance MEDICARE PART A & B [facility] MEDEX SUPPLEMENT MEDICARE PART A & B [employer] MEDEX SUPPLEMENT MEDICARE PART A & B [employer] MED[employer] SUPPLEMENT MEDICARE PART A & B [employer] MED[employer] SUPPLEMENT MEDICARE PART A & B [employer] MED[employer] SUPPLEMENT MEDICARE PART A & B [employer] MED[employer] SUPPLEMENT MEDICARE PART A & B [employer] MED[employer] SUPPLEMENT MEDICARE PART A & B [facility] MEDEX SUPPLEMENT MEDICARE PART A & B [employer] MEDEX SUPPLEMENT Care Teams Compliance And Control Analyst Relationship Specialty Start Date End Date Aroldo Blas MD [address] [facility], [facility] [address] [place] [address] [email or web address] PCP - General Family Medicine 02/17/22 Aroldo Blas MD [address] [facility], [facility] [address] [place] [address] [email or web address] Insurance Assigned Provider 07/07/23 Additional Source Comments The information contained in this document represents components of the legal health record. It is not the complete legal health record.[facility]
--- OUTSIDE RECORDS SUMMARY | 2025-01-22 19:02 | XMS_ITS | Encounter Summary ---
Author Organization [facility] Address [address] [facility] [address] [place] [address] Phone Care Team Providers Care General Passenger Agent Name Role Phone Tonya Gomez MD Primary Care Provider [phone] Tonya Gomez MD Unavailable [phone] Aroldo Blas MD Primary Care Provider [phone] Aorldo Blas MD Unavailable Encounter Details Date Type Department Care Team (Late st Contact Info) Description 08/03/2021 Procedure Pass [address] [place] [address] Social History Tobacco Use Types Packs/Day Years [...] high school, GED, job training, learning the Irish language, technical skills, or developing parenting skills)? [...] Contact Info) Description 11/28/2024 Procedure Pass [address] [place] [address] 01/15/2025 Procedure Pass [address] [address] 01/15/2025 Procedure Pass [address] [address] 01/27/2025 11:30 AM EDT Office Visit [facility] [address] [place] [address] Rell Villa MD [address] [place] [address] [facility] [place] [address] Kaya Mahoney, PT [address] [place] [address] [email or web address] 02/24/2025 4:25 PM EST Appointment [address] [address] Rell Villa MD [address] [place] [address] [facility] [address] [email or web address] 02/24/2025 5:00 PM EST Appointment [address] [place] [address] Rell Villa MD [address] [place] [address] [facility] [place] [address] 03/05/2025 11:30 AM EST Office Visit [facility] Sports [address] [place] [address] Rell Villa MD [address] [place] [address] [facility] [place] [address] 03/19/2025 Procedure Pass [facility] Admitting Dept Virtual Department [address] [place] [address] 03/19/2025 8:30 AM EST Hospital Encounter [facility]mitting [facility] Virtual Department [address] [place] [address] Billy Kelly MD [address] [place] [address] maria 03/19/2025 8:30 AM EST - 03/19/2025 9:00 AM EST Surgery [facility]oscopy Admitting Dept Virtual Department [address] [place] [address] Billy Kelly MD [address] [place] [address] maria COLONOSCOPY 04/10/2025 9:30 AM EST Office Visit [address] [address] Aroldo Blas MD [address] [place] [address], [facility] 7 [place] [address] 07/17/2025 8:45 AM EDT Appointment [facility] - [address] [place] [address] Aroldo Blas MD [address] [facility], [facility] [address] [place] [address] [email or web address] Scheduled Procedures Name Priority Associated Diagnoses Date/Ti [...] Time PHQ-2 Depression Total Score: 2 01/26/20 9:30 AM EDT documented as of this encounter Care Teams General Passenger Agent Relationship Specialty Start Date End Date Tonya Gomez MD [address] [place] [address], [facility] [address] [place] [address] [email or web address] PCP - General 01/15/17 02/16/22 Aroldo Blas MD [address] [facility], [facility] [address] [place] [address] PCP - General Family Medicine 02/17/22 Tonya Gomez MD [address] [place] [address], [facility] [address] [place] [address] [email or web address] Insurance Assigned Provider 07/10/2007/08/22 Aroldo Blas MD [address] [facility], [facility] [address] [place] [address] [email or web address] Insurance Assigned Provider 07/07/23 documented as of this encounter Additional Source Comments The information contained in this document represents components of the legal health record. It is not the complete legal health record.[facility]
--- OUTSIDE RECORDS SUMMARY | 2025-01-22 19:02 | XMS_ITS | Encounter Summary ---
Author Organization [facility] Address [address] [place] [address] Phone Care Team Providers Care Software Support Technician Name Role Phone Aroldo Blas MD Primary Care Provider [phone] Aroldo Blas MD Unavailable Encounter Details Date Type Department Care Team (Late st Contact Info) Description 05/04/2023 Procedure Pass [facility] - [address] [address] Social History Tobacco Use Types Packs/Day Years [...] (Latest Contact Info) Description 11/28/2024 Procedure Pass [address] [place] [address] 01/15/2025 Procedure Pass [address] [address] 01/15/[address] [address] 01/27/2025 11:30 AM EDT Office Visit [facility] [address] [place] [address] Rell Villa MD [address] [place] [address] [facility] [place] [address] Kaya Mahoney, PT [address] [place] [address] 02/24/2025 4:25 PM EST Appointment [address] [address] Rell Villa MD [address] [place] [address] [facility] [place] [address] 02/24/2025 5:00 PM EST Appointment [address] [address] Rell Villa MD [address] [place] [address] Orthopedics & Sports [facility] [place] [address] 03/05/2025 11:30 AM EST Office Visit [facility] Orthopedics & Sports [address] [place] [address] Rell Villa MD [address] [place] [address] [facility], [place] [address] 03/19/2025 Procedure Pass [facility] Admitting [facility] Virtual Department [address] [place] [address] 03/19/2025 8:30 AM EST Hospital Encounter [facility] Admitting [facility] Virtual Department [address] [place] [address] Billy Kelly MD [address] [place] [phone] maria 03/19/2025 8:30 AM EST - 03/19/2025 9:00 AM EST Surgery [facility]oscopy Admitting Dept Virtual Department [address] [place] [address] Billy Kelly MD [address] [place] [phone] maria COLONOSCOPY 04/10/2025 9:30 AM EST Office Visit [address] [address] Aroldo Blas MD [address] [place] [address], [facility] 7 [place] [address] 07/17/2025 8:45 AM EDT Appointment [facility] - [address] [place] [address] Aroldo Blas MD [address] [facility], [address] [place] [address] [email or web address] Scheduled Procedures Name Priority Associated Diagnoses Date/Ti [...] documented as of this encounter Care Teams Software Support Technician Relationship Specialty Start Date End Date Aroldo Blas MD [address] [facility], [address] [place] [address] [email or web address] PCP - General Family Medicine 02/17/22 Aroldo Blas MD [address] [facility], [address] [place] [address] [email or web address] Insurance Assigned Provider 07/07/23 documented as of this encounter Additional Source Comments The information contained in this document represents components of the legal health record. It is not the complete legal health record.[facility]
--- OUTSIDE RECORDS SUMMARY | 2025-01-22 19:02 | XMS_ITS | Clinical Summary ---
Author Organization [facility] Address [address] [place] [address] Care Team Providers Care Manuscript Reader Name Role Phone Tonya Gomez MD Primary Care Provider [phone] Immunizations Name Administration Dates Next Due Covid-19 [...] Td or Tdap) 03/25/2022 03/25/2012, 02/28/2010, 04/10/2000 RSV Adult > 60+ Yrs or (1 - 1-dose 75+ series) 2024 COVID-19 Vaccine (2 - season) 2024 07/10/2020 Influenza Vaccine (#1) 2024 , 12/01/2018, 12/26/2017, Additional history exists Pneumococcal Vaccine Completed 02/09/2016, 02/16/20 15 Shingrix-Zoster Vaccine Completed 03/09/2019, 12/01 Hepatitis B Vaccines Aged Out No long er eligible based on patient's age to complete this topic RSV Ped < 20 months Aged Out No longe r eligible based on patient's age to complete this topic Care Teams Manuscript Reader Relationship Specialty Start Date End Date Tonya Gomez MD [address] [address] [place] [phone] PCP - General Family Medicine 07/10/20
== END 2025-01-22 13:15 | disposition home or self-care (01) ==
LOC: HO.LAB 13:14
PROVIDERS: PCP Family Medicine; Visit Provider Urology
DX: N32.81 Overactive bladder (principal); N39.41 Urge incontinence; N39.0 Urinary tract infection, site not specified; R31.29 Other microscopic hematuria
CPT/HCPCS: 51798; 87086; 87088; 87186; 99212

== ENCOUNTER 2025-01-22 13:14 | Outpatient (AMB) | payer MEDICARE, SELFPAY ==
--- NOTE | 2025-01-22 13:24 | MHC.OFFVIS ---
Intake Visit Reasons: Botox follow up Intake Note: Patient presents today for a follow-up/OAB Urology Meds- Levothyroxine Allergies to Antibiotic- No Known Allergies Blood Thinner- None PVR: 0ml Brasswind Instrument Repairer Required: No Accompanied by: Self / Same As Patient Allergies atorvastatin (From Lipitor) Adverse Reaction (Intermediate, Verified 01/22/25 13:30) muscle ache Medication List - Last Reconciled 01/22/25 by Yaneli Ball MD levothyroxine 75 mcg PO QAM meclizine 1 tab PO DAILY PRN nitrofurantoin monohyd/m-cryst 100 mg (Macrobid) 100 mg PO BID 7 days nitrofurantoin monohyd/m-cryst 100 mg (Macrobid) 100 mg PO BID 7 days pravastatin 1 tab PO DAILY HPI Comments Details: 01/22/25- History of Present Illness The patient is a 74-year-old female presenting with management of overactive bladder and evaluation of urinary symptoms. The patient has a history of overactive bladder and underwent bladder Botox treatment on October 21, 2024. Following the procedure, she experienced improvement in urinary symptoms. For about 7-10 days the patient has had symptoms suggestive of a urinary tract infection, UA today is nitrate-positive. She also reports a yellowish vaginal discharge but denies any associated itching. Results - Urinalysis: Nitrate positive Plan 1. Overactive Bladder - Plan to schedule repeat bladder Botox treatment in June 01. Urinary Tract Infection - Initiate empirical antibiotic therapy pending urine culture results. 10/02/24-- - The patient is a 73-year-old female presenting with overactive bladder. The patient has a history of overactive bladder symptoms which were previously managed with oral medications, but these were not effective. - In September 2022, the patient received a bladder Botox injection of 100 units as an outpatient procedure, which significantly improved her symptoms. - The effects of the Botox injection has had a sustained effect of symptom relief for several months - Recently, the patient has experienced a recurrence of symptoms, including increased urgency over the last two months. - A urine culture will be conducted to rule out any infection before proceeding with another Botox injection. Plan -- Conduct a urine culture to rule out infection before proceeding with the Botox injection. - Plan for a repeat Botox injection of 100 units for the management of overactive bladder symptoms. 11/20/2022?Cindy is a 72-year-old female who presents today to the office for a 6-week follow up. She was last seen in the office by me on 09/27/2022 for overactive bladder and mixed urinary incontinence. Bladder Botox treatment 100 units was discussed during that time. She is s/p Botox procedure on 10/10/22. Results reviewed?urine culture?10/10/2022--normal. Patient has received bladder Botox injection 100 units on 10/10/2022. Today, she states that she noticed a big improvement on her bladder control. She states that she is not leaking the urine like before. She reports stronger urinary stream and notes that she is emptying the bladder. Evaluation: Bladder scan PVR - 0 mL. Last visit: 09/27/2022?The patient is being followed for OAB symptoms and mixed urinary incontinence. She was last seen in the office on 08/16/22, at that time she stated she had no improvement using Gemtesa 75 mg. She had been prescribed multiple antimuscarinic therapy including Myrbetriq and oxybutynin. Medical records also note Medtronic InterStim was placed 2001 and later removed, the patient states the pacemaker initially seemed to work, but the battery lifetime and she was concerned that if she needed an MRI she would not be able to get one, (I have discussed that interstim is now MRI compatible).? History of sling approximately [address] Carrera. The patient is yet to follow-up with POWER PLANT OPERATOR APPRENTICE. States intermittent mild vaginal bleeding. Evaluation today-- Eyeball Cystometrogram performed-- filled the bladder with sterile water- at 30 cc she had first sensation, at 70 cc she complained of urgency and at 195 cc she felt that she was at max capacity and detrusor contractions were noted. I removed the catheter and she started leaking. 16 Fr Liz catheter was used for the procedure. Plan: Bladder Botox treatment 100 units discussed.?? PFSH Medical History Fibromyalgia Hypothyroidism Arthritis Anxiety and depression OAB (overactive bladder) PONV (postoperative nausea and vomiting) Urge and stress incontinence Surgical History Hx of umbilical hernia repair Hx of breast implants, bilateral History of foot surgery Hx of colonoscopy History of partial hysterectomy History of pubovaginal sling History of surgery Social History Alcohol intake: current Alcohol intake frequency: holidays/special occasions only Patient Tobacco Use Status: Former Tobacco user Tobacco use type: Cigarette Years Smoked: 15 Review of Systems Const All systems reviewed & are unremarkable except as noted in HPI and below Reports no additional complaints Eyes Reports no additional complaints ENT Reports no additional complaints Card Reports no additional complaints Resp Reports no additional complaints GI Reports no additional complaints Reports as per HPI Musc Reports no additional complaints Skin/Breast Reports system reviewed and no additional complaints, except as documented Neuro Reports no additional complaints Psych Reports no additional complaints Endo Reports no additional complaints Tyson/Lymph Reports no additional complaints Aller/Immun Reports no additional complaints Office Procedures Post Void Residual Post Residual Void Post Void Residual (PVR): 0 26613-Ocxp Void Residual by ultrasound Results Reviewed Results Reviewed: Laboratory Last Values Urine pH (Auto) 5.5 01/22/25 09:49 Specific [place] (Auto) 1.025 01/22/25 09:49 Urine Protein (Auto) 30 mg/dL 01/22/25 09:49 Glucose (UA)(Auto) 0 mg/dL 01/22/25 09:49 Urine Ketones (Auto) Negative 01/22/25 09:49 Urine Blood (Auto) 200 Zackary/uL 01/22/25 09:49 Urine Nitrite (Auto) Negative 01/22/25 09:49 Urine Bilirubin (Auto) 0 mg/dL 01/22/25 09:49 Urine Urobilinogen (Auto) 0.2 mg/dL 01/22/25 09:49 Leukocyte Esterase (Auto) 500 Antionette/uL 01/22/25 09:49 Assessment & Plan Assessment & Plan (1) OAB (overactive bladder): Code(s): N32.81 - Overactive bladder Category: Medical (2) Detrusor instability: Code(s): N32.81 - Overactive bladder Category: Medical (3) Urge incontinence: Code(s): N39.41 - Urge incontinence Category: Medical (4) UTI (urinary tract infection): Code(s): N39.0 - Urinary tract infection, site not specified Category: Medical Plan Plan 1. Overactive Bladder - Plan to schedule repeat bladder Botox treatment in March 2. Urinary Tract Infection - Initiate empirical antibiotic therapy pending urine culture results. Orders: Orders Urine Culture 01/22/25 R31.29 - Other microscopic hematuria Medications: New nitrofurantoin monohyd/m-cryst 100 mg (Macrobid) must administer with a meal/food 100 mg PO BID 14 caps 0RF 7 days Patient Instructions: The patient had an opportunity to ask questions regarding treatment plan. The patient expressed understanding and agreement with the above treatment plan. The patient is aware they should contact our office by phone for worsening of their current condition or the appearance of new symptoms. Compliance is encouraged with any medications and followup testing that is ordered. It is a privilege to be allowed the opportunity to participate in the urologic care of your patient. If you have any questions or concerns regarding treatment for the above conditions please do not hesitate to contact me. The office telephone contact is [phone]. This note is constructed in part using voice recognition software. While every effort has been made to ensure accuracy ram car operator errors may have been included. Yours sincerely, Yaneli Ball MD Scribe Plan - Not visible on output: Patient was informed and verbally consented to the use of an ambient scribe for clinic note documentation during this visit. Coding Level of Care Code Est Pt Level 4 (48480) Diagnoses OAB (overactive bladder) N32.81 Detrusor instability N32.81 Urge incontinence N39.41 UTI (urinary tract infection) N39.0 CPT Codes Post Residual Void - PVR CPT Code: 29838-Xqyt Void Residual by ultrasound ([id number])
== END 2025-01-22 14:00 | disposition home or self-care (01) ==
LOC: HO.HUSH 13:15
PROVIDERS: PCP Family Medicine; Visit Provider Urology
DX: N32.81 Overactive bladder (principal); N39.41 Urge incontinence; N39.0 Urinary tract infection, site not specified
CPT/HCPCS: 99214